=== PATIENT | male | born 1960 | race Caucasian/White ===

== ENCOUNTER 2019-04-26 18:03 | Inpatient (IN) | payer OTHER ==
[2019-04-26] MEDS ORDERED: NS 0.9% 1000 ML** 1,000 ML IV ONE ×2 (18:08→19:39)
[2019-04-26] MEDS ORDERED: LORazepam INJ* 2 MG/ML 1 ML VIAL ONE (18:11)
[2019-04-26] MEDS ORDERED: Lorazepam PYXIS KEY PRN (18:15)
[2019-04-26] MEDS ORDERED: LORazepam INJ* 2 MG/ML 1 ML VIAL IV PUSH ONE (18:15)
--- NOTE | 2019-04-26 18:15 | ED ---
Altered Mental Status - HPI Summary HPI Summary: The patient is 58 y/o M arriving via ambulance to [facility] with concern for AMS tonight. Per EMS, the ambulance call was made for seizure-like activity witnessed by the patients girlfriend. When EMS arrived, the patient was sitting on the cough but was flailing around and became combative with staff. He was incontinence of urine, which is usual for him. New recent diagnosis of Parkinsons disease. His girlfriend notes marijuana use but no EtOH. EMS administered 2mg Narcan without success. VSS in transport. Level 5 Caveat secondary to AMS. History obtained from EMS. - History Of Current Complaint Stated Complaint: AMS PER EMS Hx Obtained From: EMS Hx From Patient Unobtainable Due To: Altered Mental Status - Level 5 Caveat Onset/Duration: Still Present Severity Currently: Severe Character: Agitation, Responsiveness Aggravating Factor(s): Unknown Alleviating Factor(s): Unknown Associated Signs And Symptoms: Positive: Seizure - possible - Allergies/Home Medications Allergies/Adverse Reactions: Allergies Allergy/AdvReac Type Severity Reaction Status Date / Time Penicillins Allergy Mild Itching Verified 04/26/19 18:24 Home Medications: Home Medications Unobtainable 04/26/19 [History Confirmed 04/26/19] PMH/Surg Hx/FS Hx/Imm Hx Sensory History: Denies: Hx Legally Blind Opthamlomology History: Denies: Hx Legally Blind Neurological History: Reports: Other Neuro Impairments/Disorders - Parkinson's disease - Surgical History Surgical History: Unable to Obtain/Confirm - Level 5 Caveat secondary to AMS. - Family History Known Family History: Positive: Unknown - Level 5 Caveat secondary to AMS. - Social History Alcohol Use: None Hx Substance Use: Yes Substance Use Type: Reports: Marijuana Smoking Status (MU): Unknown if Ever Smoked - Level 5 Caveat secondary to AMS. Review of Systems Positive: incontinence Neurological/Mental Status: Other - AMS, possible seizure activity All Other Systems Reviewed And Are Negative: No - Comments Additional Review of Systems Comments: Level 5 Caveat secondary to AMS. Physical Exam - Summary Physical Exam Summary: Constitutional: Well-developed, Well-nourished, Alert. (-) Distressed Skin: Warm, Dry HENT: Normocephalic; Atraumatic Eyes: Conjunctiva normal Neck: Musculoskeletal ROM normal neck. (-) JVD, (-) Stridor, (-) Tracheal deviation Cardio: Rhythm regular, rate tachycardic, Heart sounds normal; Intact distal pulses; The pedal pulses are 2+ and symmetric. Radial pulses are 2+ and symmetric. (-) Murmur Pulmonary/Chest wall: Effort normal. (-) Respiratory distress, (-) Wheezes, (-) Rales Abd: Soft, (-) tenderness, (-) Distension, (-) Guarding, (-) Rebound Musculoskeletal: (-) Edema Lymph: (-) Cervical adenopathy Neuro: Alert, Patient is nonverbal, Moving all extremities, No total-clonic activity noted Psych: Mood and affect Normal GCS: 10 (see scale) Triage Information Reviewed: Yes Vital Signs Reviewed: Yes - [place] Coma Scale Best Eye Response: 4 - Spontaneous Best Motor Response: 5 - Purposeful Movement Best Verbal Response: 1 - None Coma Scale Total: 10 Procedures - Sedation Patient Received Moderate/Deep Sedation with Procedure: No Diagnostics - Laboratory Result Diagrams: 04/27/19 04:21 04/27/19 04:21 Lab Statement: Any lab studies that have been ordered have been reviewed, and results considered in the medical decision making process. - Radiology CXR Radiology Interpretation Completed By: ED Physician Summary of Radiographic Findings: No acute disease. This imaging scan was reviewed and interpreted by Dr. Martínez. Pending official read. - EKG 1910 Cardiac Rate: NL - 75 BPM EKG Rhythm: Sinus Rhythm Summary of EKG Findings: An EKG at 1910 reveals sinus rhythm at rate of 75 BPM. RBBB. T-wave inversion in V2-V3. This EKG was reviewed and interpreted by Dr. Martínez. Re-Evaluation - Re-Evaluation First Eval Re-Evaluation Time: 19:30 Comment: Patient chemically sedated with Ativan/Haldol/Benadryl and additional Versed. Physical restraints in place. Second Eval Re-Evaluation Time: 19:45 Comment: Will terminate further need for chemical restraints at this time, physical restraints need reassessment Altered Mental Statu Course/Dx - Course Course Of Treatment: M of unknown age arriving via ambulance for initial seizure -like activity but became combative with EMS. Noted hx of marijuana use. Recent diagnosis of Parkinsons disease. 58 y/o M arriving via ambulance for initial seizure-like activity but became combative with EMS. Noted hx of marijuana use. Recent diagnosis of Parkinsons disease. Physical exam reveals patient to be nonverbal, moving all extremities, no total-clonic activity noted, tachycardic rate, GCS: 10 (see sacle). Patient placed on lunchroom monitor. IV access obtained. Patient received fluids. Patient chemically sedated with total 4ml Versed, 4mg Ativan, 10mg Haldol and 50 mg Benadryl. Patient needs sedation for head CT. Physical restraints in place. Blood work thus far reveals WBCs of 22.3 , hct of 41, MCV of 96, MCH of 32, hypokalemia of 3, chloride of 100, carbon dioxide of 17, anion gap of 22, creatinine of 1.29, glucose of 209, lactic acid of 13.2, magnesium of 2.9, hyperammonemia of 117, and total creatinine kinase of 285. Patient administered potassium chloride. An EKG at 1911 reveals sinus rhythm at rate of 75 BPM, RBBB, T-wave inversion in V2-V3. CXR reveals no acute disease. Dr. Chance from the hospitalist services accepts the patient for admission, pending labs, Brain CT. - Diagnoses Provider Diagnoses: Encephalopathy, Hyperammonemia, Leukocytosis, Hypokalemia - Provider Notifications Discussed Care Of Patient With: Joseph Chance - hospitalist Time Discussed With Above Provider: 19:15 Instructed by Provider To: Other - I discussed the patients case with Dr. Chance, who accepts the patient for admission. - Critical Care Time Critical Care Time: 75-104 min - 90 minutes Discharge ED - Sign-Out/Discharge Documenting (check all that apply): Patient Departure - Patient accepted for admission by Dr. Chance. - Discharge Plan Condition: Critical Disposition: ADMITTED TO [facility] - Billing Disposition and Condition Condition: CRITICAL Disposition: Admitted to [facility] - Attestation Statements Document Initiated by Scribe: Yes Documenting Scribe: Danna Dickson Provider For Whom Danielibe is Documenting (Include Credential): Dr. Jace Martínez DO Scribe Attestation: Danna Nguyen scribed for Dr. Jace Martínez DO on 04/27/19 at 1026. Scribe Documentation Reviewed: Yes Provider Attestation: The documentation as recorded by the scribe, Danna Randolph accurately reflects the service I personally performed and the decisions made by me, Dr. Jace Martínez, DO Status of El Document: Viewed - Assessment for Patient Restraint Face to Face Encounter Date: 04/26/19 Face to Face Encounter Time: 19:32 Evaluation of the Patient's Immediate Situation: Patient agitated, AMS, unable to obtain head CT without sedation Patient's Reaction to Intervention: Patient still agitated after receiving Ativan/Haldol/Benadryl, patient calm after additional Versed. Patient's Medication and Behavioral Condition: Ativan/Haldol/Benadryl and additional Haldol Evaluate Need for Continued Restraint: Terminate - will terminate chemical restraints and physical restraints will need reassessment
[2019-04-26] MEDS ORDERED: Haloperidol INJ IV/IM* 5 MG/ML AMP IV SLOW PU ONE (18:16)
[2019-04-26] MEDS ORDERED: diPHENhydraMINE IV* 50 MG/ML 1 ml VIAL (BENADRYL) IV ONE (18:16)
--- OUTSIDE RECORDS SUMMARY | 2019-04-26 18:21 | XMS REPORT | Continuity of Care Document ---
:1960 External Reference #:[id number] Author Name Keny Cha NToño (transmitted by agent of provider Joanie Dudley) Address [address], [place] [address] Care Team Providers Name Role Phone Hugh Jacobo D.O. - Family Medicine Care Team Information Fire Control Officer [phone] Problems Description No Information Available Social History Type Date Description Comments Sex Unknown Tobacco Use Start: Unknown Light tobacco smoker (10 or fewer cigarettes/day) Smoking Status Reviewed: 04/05/19 Light tobacco smoker (10 or fewer cigarettes/day) ETOH Use Denies alcohol use Tobacco Use Start: Unknown Light tobacco smoker (10 or fewer cigarettes/day) Recreational Drug Use Current Drug User Exercise Type/Frequency Exercises regularly Allergies, Adverse Reactions, Alerts Active Allergies Reaction Severity Comments Date Penicillin 01/25/2019 Medications Active Medications SIG Qnty Indications Ordering Provider Date Rivastigmine Tartrate take one capsule 60caps G20 Keny Cha, 2019 by mouth twice a N.P. 1.5mg Capsules day start may 04 Carbidopa-Levodopa 1/2 pill three 45tabs G20 Keny Cha, 01/25/2019 times a day, 30 N.P. 25-100mg Tablets min prior to meals History Medications No Active Medications Unknown 01/25/2019 - 01/25/2019 Immunizations Description No Information Available Vital Signs Date Vital Result Comment 04/05/2019 3:42pm Height 70 inches 5'10" Weight 155.00 lb Heart Rate 68 /min BP Systolic 130 mmHg BP Diastolic 82 mmHg BMI (Body Mass Index) 22.2 kg/m2 01/25/2019 1:24pm Height 70 inches 5'10" Weight 150.00 lb Heart Rate 62 /min BP Systolic 132 mmHg BP Diastolic 82 mmHg BMI (Body Mass Index) 21.5 kg/m2 Results Test Acquired Date Facility Test Result H/L Range Note CBC Auto 01/25/2019 [facility] White Blood 14.3 10^3/uL High 3.5-10.[address] [place] [address] [phone] Red Blood Count 4.25 10^6/uL Normal 4.18-5.48 Hemoglobin 13.5 g/dL Low 14.0-18.0 Hematocrit 40 % Low 42-52 Mean Corpuscular Volume 94 fL Normal 80-94 Mean Corpuscular Hemoglobin 32 pg High 27-31 Mean Corpuscular HGB Conc 34 g/dL Normal 31-36 Red Cell Distribution Width 14 % Normal 10-15 Platelet Count 345 10^3/uL Normal 150-450 Mean Platelet Volume 7.4 fL Normal 7.4-10.4 Abs Neutrophils 10.7 10^3/uL High 1.5-7.7 Abs Lymphocytes 1.9 10^3/uL Normal 1.0-4.8 Abs Monocytes 1.0 10^3/uL High 0-0.8 Abs Eosinophils 0.5 10^3/uL Normal 0-0.6 Abs Basophils 0.1 10^3/uL Normal 0-0.2 Abs Nucleated RBC 0.0 10^3/uL Granulocyte % 74.8 % Lymphocyte % 13.3 % Monocyte % 7.2 % Eosinophil % 3.7 % Basophil % 1.0 % Nucleated Red Blood Cells % 0.0 Comp Metabolic 01/25/2019 [facility] Sodium 138 mmol/L Normal 135-[address] [place] [address] [phone] Potassium 4.7 mmol/L Normal 3.5-5.0 Chloride 101 mmol/L Normal 101-111 Co2 Carbon Dioxide 32 mmol/L Normal 22-32 Anion Gap 5 mmol/L Normal 2-11 Glucose 92 mg/dL Normal 70-100 Blood Urea Nitrogen 12 mg/dL Normal 6-24 Creatinine 0.86 mg/dL Normal 0.67-1.17 BUN/Creatinine Ratio 14.0 Normal 8-20 Calcium 9.2 mg/dL Normal 8.6-10.3 Total Protein 6.6 g/dL Normal 6.4-8.9 Albumin 4.1 g/dL Normal 3.2-5.2 Globulin 2.5 g/dL Normal 2-4 Albumin/Globulin Ratio 1.6 Normal 1-3 Total Bilirubin 0.60 mg/dL Normal 0.2-1.0 Alkaline Phosphatase 75 U/L Normal 34-104 Alt 8 U/L Normal 7-52 Ast 11 U/L Low 13-39 Egfr Non- 91.3 >60 Egfr 110.5 >60 1 Paraneoplastic 01/25/2019 [facility] Paraneoplastic Ab See Comment [address] [place] [address] [phone] Anti-Neuronal Nuclear Ab Type1 Negative titer <1:240 Reflex Added None. 3 Anti-Neuronal Nuclear Ab Type2 Negative titer <1:240 4 Anti-Neuronal Nuclear Ab Type3 Negative titer <1:240 5 Anti-Glial/Neuronal Nuc Ab-1 A Negative titer <1:240 6 Purkinje Cell Cytoplasm Type 1 Negative titer <1:240 7 Purkinje Cell Cytoplasm Type 2 Negative titer <1:240 8 Purkinje Cell Cytoplasm Typ Tr Negative titer <1:240 9 Amphiphysin Antibody Negative titer <1:240 10 CRMP-5 IgG Antibody Negative titer <1:240 11 Anti-Striated Muscle Antibody Negative titer <1:120 12 Calcium Channel Binding Ab P/Q 0.00 nmol/L <=0.02 13 N Type Calcium Channel Binding 0.00 nmol/L <=0.03 14 AChR Ganglionic Neuronal Ab 0.00 nmol/L <=0.02 15 Voltage-Gated Potassium Chann 0.00 nmol/L <=0.02 16 Vitamin B12 01/25/2019 [facility] Vitamin B12 220 pg/mL Normal 180-914 17 [address] [place] [address] [phone] Folic Acid (Folate) 6.60 ng/mL >3.99 18 Laboratory test 01/25/2019 [facility] Methylmalonic 0.15 <= 0.40 [address] Acid Mma nmol/[place] [address] [phone] TSH (Thyroid Stim Horm) 1.10 mcIU/mL Normal 0.34-5.60 20 Free T4 (Free Thyroxine) 0.79 ng/dL Normal 0.61-1.12 21 Erythrocyte Sed Rate 15 mm/Hr Normal 0-19 22 C Reactive Protein 6.23 mg/L Normal <8.01 23 Protein 01/25/2019 [facility] Total 6.8 g/dL 6.3 - Electrophoresis [address] Protein(Pep) 7.9 [place] [address] [phone] Albumin 3.5 g/dL 3.4-4.7 Alpha-1 Globulin 0.3 g/dL 0.1-0.3 Alpha-2 Globulin 1.2 g/dL Abnormal 0.6-1.0 Beta Globulin 0.8 g/dL 0.7-1.2 Gamma Globulin 1.0 g/dL 0.6-1.6 Albumin/Globulin Ratio 1.06 Impression See Comment 24 Immunofixation See Comment 25 1 Because ethnic data is not always readily available, this report includes an eGFR for both -Americans and non- Americans. The National Kidney Disease Education Program (NKDEP) does not endorse the use of the MDRD equation for patients that are not between the ages of 18 and 70, are , have extremes of body size, muscle mass, or nutritional status, or are non- or non-. According to the National Kidney Foundation, irrespective of diagnosis, the stage of the disease is based on the level of kidney function: Stage Description GFR(mL/min/1.73 m(2)) 1 Kidney damage with normal or decreased GFR 90 2 Kidney damage with mild decrease in GFR 60-89 3 Moderate decrease in GFR 30-59 4 Severe decrease in GFR 15-29 5 Kidney failure <15 (or dialysis) 2 No informative autoantibodies were detected in the Paraneoplastic Evaluation. However, a negative result does not exclude neurological autoimmunity with or without associated neoplasia. Sensitivity and specificity of antibody testing are enhanced by testing both serum and CSF. 3 ADDITIONAL INFORMATION This test was developed and its performance characteristics determined by [facility] in a manner consistent with CLIA requirements. This test has not been cleared or approved by the U.S. Food and Drug Administration. 4 ADDITIONAL INFORMATION This test was developed and its performance characteristics determined by [facility] in a manner consistent with CLIA requirements. This test has not been cleared or approved by the U.S. Food and Drug Administration. 5 ADDITIONAL INFORMATION This test was developed and its performance characteristics determined by [facility] in a manner consistent with CLIA requirements. This test has not been cleared or approved by the U.S. Food and Drug Administration. 6 ADDITIONAL INFORMATION This test was developed and its performance characteristics determined by [facility] in a manner consistent with CLIA requirements. This test has not been cleared or approved by the U.S. Food and Drug Administration. 7 ADDITIONAL INFORMATION This test was developed and its performance characteristics determined by [facility] in a manner consistent with CLIA requirements. This test has not been cleared or approved by the U.S. Food and Drug Administration. 8 ADDITIONAL INFORMATION This test was developed and its performance characteristics determined by [facility] in a manner consistent with CLIA requirements. This test has not been cleared or approved by the U.S. Food and Drug Administration. 9 ADDITIONAL INFORMATION This test was developed and its performance characteristics determined by [facility] in a manner consistent with CLIA requirements. This test has not been cleared or approved by the U.S. Food and Drug Administration. 10 ADDITIONAL INFORMATION This test was developed and its performance characteristics determined by [facility] in a manner consistent with CLIA requirements. This test has not been cleared or approved by the U.S. Food and Drug Administration. 11 ADDITIONAL INFORMATION This test was developed and its performance characteristics determined by [facility] in a manner consistent with CLIA requirements. This test has not been cleared or approved by the U.S. Food and Drug Administration. 12 ADDITIONAL INFORMATION This test was developed and its performance characteristics determined by [facility] in a manner consistent with CLIA requirements. This test has not been cleared or approved by the U.S. Food and Drug Administration. Test Performed by: [facility] - [address] [address] Coin Counter And Wrapper: Ryan Moncada M.D. Ph.D.; CLIA# [id number] 13 ADDITIONAL INFORMATION This test was developed and its performance characteristics determined by [facility] in a manner consistent with CLIA requirements. This test has not been cleared or approved by the U.S. Food and Drug Administration. 14 ADDITIONAL INFORMATION This test was developed and its performance characteristics determined by [facility] in a manner consistent with CLIA requirements. This test has not been cleared or approved by the U.S. Food and Drug Administration. 15 ADDITIONAL INFORMATION This test was developed and its performance characteristics determined by [facility] in a manner consistent with CLIA requirements. This test has not been cleared or approved by the U.S. Food and Drug Administration. 16 ADDITIONAL INFORMATION This test was developed and its performance characteristics determined by [facility] in a manner consistent with CLIA requirements. This test has not been cleared or approved by the U.S. Food and Drug Administration. 17 Normal Range 180 to 914 Indeterminate Range 145 to 180 Deficient Range <145 18 Copy Result to: HUGH JACOBO ([id number]) 19 ADDITIONAL INFORMATION This test was developed and its performance characteristics determined by [facility] in a manner consistent with CLIA requirements. This test has not been cleared or approved by the U.S. Food and Drug Administration. Test Performed by: [place] [address] [employer] Counter And Wrapper: Ryan Moncada M.D. Ph.D.; CLIA# [id number] 20 Copy Result to: HUGH JACOBO ([id number]) 21 Copy Result to: HUGH JACOBO ([id number]) 22 Copy Result to: HUGH JACOBO ([id number]) 23 Copy Result to: HUGH JACOBO ([id number]) 24 Small abnormality in gamma fraction. See Immunofixation. Test Performed by: [place] [address] [employer] Counter [employer] Wrapper: Ryan Moncada M.D. Ph.D.; CLIA# [id number] 25 Small monoclonal IgM kappa within the gamma fraction. Suggest repeat testing in 6-12 months if clinically indicated. Test Performed by: [place] [address] [employer] Counter [employer] Wrapper: Ryan Moncada M.D. Ph.D.; CLIA# [id number] Procedures Description No Information Available Medical Devices Description No Information Available Encounters Type Date Location Provider Dx Diagnosis Office Visit 01/25/2019 [facility] Keny Cha, R41.3 Other amnesia 1:[facility] N[facility] R53.83 Other fatigue G20 Parkinson's disease Assessments Date Code Description Provider 04/05/2019 R41.3 Other amnesia Keny Cha N.P. 04/05/2019 R53.83 Other fatigue Keny Cha, N.P. 04/05/2019 G20 Parkinson's disease Keny Cha, N.P. 01/25/2019 R41.3 Other amnesia Keny Cha, N.P. 01/25/2019 R53.83 Other fatigue Keny Semaj, N.P. 01/25/2019 G20 Parkinson's disease Keny Cha, N.P. Plan of Treatment 04/05/2019 - Keny Cha, N.P.R41.3 Other amnesiaReferral:Jace Gupta, PHD, Clinical NeuropsychologstFollow up:[address] Qiu over bookRecommendations:Please take B12 [id number] Other [id number] Parkinson's diseaseNew Medication:Rivastigmine Tartrate 1.5 mg - take one capsule by mouth twice a day start may 04Referral:[facility], Clinic/Center Functional Status Description No Information Available Mental Status Description No Information Available Referrals Refer to Reason for Referral Status Appt Date [facility] Created [address] [place], [place] [id number] [phone] Jace Gupta, PHD Created [address] [place] [address] [phone] [facility] g20, parkinsonism Closed [address] [place] [address] [phone]
[2019-04-26] MEDS ORDERED: diPHENhydraMINE IV* 50 MG/ML 1 ml VIAL (BENADRYL) ONE (18:22)
[2019-04-26] MEDS ORDERED: Haloperidol INJ IV/IM* 5 MG/ML AMP ONE (18:22)
[2019-04-26] MEDS ORDERED: Midazolam* 1 MG/ML 2 ML VIAL (2 MG) IV SLOW PU ONE ×7 (18:24→20:05)
[2019-04-26] MEDS ORDERED: Succinylcholine* 20 MG/ML 10 ML VIAL ONE ×2 (18:39→21:31)
[2019-04-26] MEDS ORDERED: Midazolam* 1 MG/ML 2 ML VIAL (2 MG) ONE (18:39)
[2019-04-26] MEDS ORDERED: Midazolam* 1 MG/ML 10 ML VIAL (10 MG) ONE (18:39)
[2019-04-26] MEDS ORDERED: Etomidate* 2 MG/ML 20 ML VIAL (40 MG) ONE (18:39)
[2019-04-26 19:03] LABS: Hematocrit 41 % (42-52); Mean Corpuscular HGB Conc 34 g/dL (31-36); Mean Corpuscular Hemoglobin 32 pg (27-31); Mean Corpuscular Volume 96 fL (80-94); Mean Platelet Volume 7.3 fL (7.4-10.4); Platelet Count 304 10^3/uL (150-450); Red Blood Count 4.32 10^6 /uL (4.18-5.48); Red Cell Distribution Width 14 % (10-15); White Blood Count 22.3 10^3/uL (3.5-10.8)
[2019-04-26 19:09] LABS: INR 0.96 (0.82-1.09)
[2019-04-26 19:22] LABS: ALT 14 U/L (7-52); AST 18 U/L (13-39); Albumin 4.7 g/dL (3.2-5.2); Albumin/Globulin Ratio 1.8 (1-3); Alkaline Phosphatase 68 U/L (34-104); Anion Gap 22 mmol/L (2-11); BUN/Creatinine Ratio 10.9 (8-20); Blood Urea Nitrogen 14 mg/dL (6-24); CO2 Carbon Dioxide 17 mmol/L (22-32); Calcium 9.5 mg/dL (8.6-10.3); Chloride 100 mmol/L (101-111); Creatine Kinase 285 U/L (10-223); EGFR African American 69.2 (>60); EGFR Non-African American 57.2 (>60); Globulin 2.6 g/dL (2-4); Glucose 209 mg/dL (70-100); Magnesium 2.9 mg/dL (1.9-2.7); Sodium 139 mmol/L (135-145); Total Protein 7.3 g/dL (6.4-8.9); Troponin I 0.01 ng/mL (<0.03)
[2019-04-26] MEDS ORDERED: Lidocaine 1% INJ* 10 MG/ML 30 ML SDV INJ ONE (19:28)
[2019-04-26] MEDS ORDERED: KCL 10 MEQ/50 ML IVPREMIX* 10 MEQ/50 ML BAG IV ONE (19:31)
[2019-04-26] MEDS ORDERED: Lidocaine 2.5%/Prilocain 2.5%* 5 GM TUBE ONE (19:41)
[2019-04-26 20:02] LABS: Influenza A Molecular Negative (Negative); Influenza B Molecular Negative (Negative)
[2019-04-26 20:10] LABS: Alcohol < 10 mg/dL (<10)
[2019-04-26 20:18] LABS: ABS Basophils 0.2 10^3/ul (0-0.2); ABS Eosinophils 0.1 10^3/ul (0-0.6); ABS Lymphocytes 0.9 10^3/ul (1.0-4.8); ABS Monocytes 0.8 10^3/ul (0-0.8); ABS Neutrophils 20.3 10^3/ul (1.5-7.7); Eosinophil % 0.3 %; Lymphocyte % 4.2 %
[2019-04-26 20:18] LABS: Urine Appearance Cloudy; Urine Bilirubin Negative (Negative); Urine Blood Negative (Negative); Urine Color Yellow; Urine Glucose Negative (Negative); Urine Ketones Negative (Negative); Urine Nitrite Negative (Negative); Urine Protein 2+(100 mg/dL) (Negative); Urine Specific Gravity 1.012 (1.010-1.030); Urine Urobilinogen Negative (Negative)
[2019-04-26 20:20] LABS: Urine Bacteria Absent (Absent); Urine Red Blood Cell 1+(3-5/hpf) (Absent); Urine White Blood Cell Trace(0-5/hpf) (Absent)
[2019-04-26 20:25] LABS: TSH (Thyroid Stimulating Horm) 4.18 mcIU/mL (0.34-5.60)
[2019-04-26 20:32] LABS: Urine Benzodiazepine Screen Presumptive Positive (None Detect); Urine Opiates Screen None Detected (None Detect)
--- NOTE | 2019-04-26 20:46 | CONSULT ---
Consult Consult: Lumbar puncture was done at L4-L5 region; 2mg Versed administered, two attempts were made, clear CSF obtained. <Donavan Harden - Last Filed: 04/26/19 20:43> Consult: NDICATION: AMS/elevated WBC PROCEDURE INDUSTRIAL STAFF NURSE: Gama Yoder MD CONSENT: Informed consent from family was obtained and is in the chart PROCEDURE SUMMARY: A time-out was performed. The patient was placed in the left lateral decubitus position with help from the nursing staff. The area was cleansed and draped in usual sterile fashion. Anesthesia was achieved with local lidocaine 1%. A 22- gauge spinal needle was placed in the L4-5 interspace. On the 2nd attempt, clear cerebral spinal fluid was obtained. Four tubes were filled with 4 mL of CSF. These were sent for the usual tests. The patient had no immediate complications and tolerated the procedure well. ESTIMATED BLOOD LOSS: Minimal <Gama Yoder - Last Filed: 04/26/19 21:55> ED Procedures - Lumbar Puncture L4-L5 Procedural Sedation: Versed 2mg Position: Lateral Decubitus Spinal Needle Used: 22 Gauge Lumbar Puncture Note: Lumbar puncture was done at L4-L5 region; 2mg Versed administered, two attempts were made, clear CSF obtained. <Donavan Harden - Last Filed: 04/26/19 20:43>
[2019-04-26 21:01] LABS: Body Fluid Source Cerebral Spinal
[2019-04-26 21:18] LABS: CSF Glucose 94 mg/dL (40-70)
[2019-04-26] MEDS ORDERED: Propofol* 100 ML ONE (21:30)
--- NOTE | 2019-04-26 21:49 | ED ---
ED Procedures - Intubation Time of Intubation: 21:48 Intubation Method: orotracheal Tube Size (cm): 7.5 Medications: Succinylcholine Breath Sounds after Intubation: equal Intubation Complications: no complications Post Intubation Xray: Yes Progress/Xray Impression: Tube placed succesfully
[2019-04-26 21:53] LABS: Body Fluid Mono 33 %
[2019-04-26] MEDS ORDERED: cefTRIAXone(*) 2 GM in NS 0.9% 100 ML* 100 ML IVPB SCH (22:00)
[2019-04-26] MEDS ORDERED: Propofol* 100 ML IV SCH (23:00)
[2019-04-26] MEDS: NS 0.9% 1000 ML** 1,000 ML IV SCH (23:23)
[2019-04-26] MEDS ORDERED: fentaNYL INFUSION 50 MCG/ML* 2,500 MCG/50 ML BAG IV SCH (23:45)
--- NOTE | 2019-04-26 23:59 | HP ---
History of Present Illness - History of Present Illness Reason for Visit: Altered mental status, Lethargy, Seizure like activities History of Present Illness: 58 yo male with PMHx significant for newly diagnosed Parkinson's disease per girl friend presented with CC of AMS, Seizure like activity this PM per family. Girl friend said she witnessed patient shaking and gazing without responding to her. This lasted for about 3-5 minutes. There was associated urinary incontinence. There was a remote history of headache and continued use of nicotine. Denied fever, nausea, vomiting. Patient was newly diagnosed with Parkinson's and is following Dr. Qiu (Neurology). In the ED patient was noted to be combative, lethargic and was sedated. Initial labs revealed Leukocytosis, Hyperammonemia and lactic acidosis. Case discussed discussed with Wheel Setter Dr. Degroot who agreed patient be admitted to ICU, intubated (propofol) and empiric treatment for meningitis started. 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 Psych: Addictions - Nicotine addiction - Past Surgical History Past Surgical History: None - Unable to obtain due to patient non verbal and sedated - Past Family History Family History: None - Unable to obtain; Patient sedated and non verbal - Past Social History Smoke: 1 pack per day Lives: Roommate Review of Systems - Measurements Intake and Output: Intake and Output Last 24 Hours 04/24/19 04/25/19 04/26/19 04/27/19 06:59 06:59 06:59 06:59 Intake Total 50 Balance 50 Weight 77.111 kg Intake: IV Fluids 50 - Review of Systems General Comments: Unable to obtain due to patient's condition (Sedated and nonverbal) Objective Active Medications: Chlorhexidine Gluconate (Peridex Mouth Wash 0.12%*) 15 ml SWISH SPIT Q4HR [facility] Enoxaparin Sodium (Lovenox(*)) 40 mg SUBCUT Q24H [facility] Sodium Chloride (Ns 0.9% 1000 Ml) 1,000 mls @ 125 mls/hr IV PER RATE [facility] Last Admin: 04/26/19 23:23 Dose: 125 mls/hr Ceftriaxone Sodium 2 gm/ (Sodium Chloride) 100 mls @ 200 mls/hr IVPB Q12H [facility] Last Admin: 04/26/19 23:23 Dose: 200 mls/hr Fentanyl Citrate (Fentanyl Infusion Bag 50 Mcg/Ml 50 Ml) 2,500 mcg in 50 mls @ 0.25 mls/hr IV .PER PROTOCOL [facility]; Protocol Last Admin: 04/26/19 23:51 Dose: 0.25 mls/hr Propofol (Diprivan*) 100 mls @ 27.76 mls/hr IV .PER PROTOCOL [facility]; Protocol Potassium Chloride (Potassium Chloride 20 Meq/100 Ml Ivpremix*) 20 meq in 100 mls @ 50 mls/hr IV Q2H [facility] Stop: 04/27/19 03:44 Miscellaneous (Ativan Pyxis Bray) 1 ea N/A .ATIVAN IV BRAY PRN PRN Reason: PYXIS BRAY Nicotine (Nicotine Patch 14 Mg/24 Hr*) 1 patch TRANSDERM DAILY [facility] Pantoprazole Sodium (Protonix Iv*) 40 mg IV DAILY [facility] Pharmacy Profile Note (Nicotine Patch Removal Note*) 1 note FOLLOW UP 0600 [facility] Vital Signs - 8 hr 04/26/19 04/26/19 04/26/19 18:14 18:27 18:28 Temperature 97.2 F Pulse Rate 123 131 Respiratory 39 30 17 Rate Blood Pressure 157/135 (mmHg) O2 Sat by Pulse 95 95 Oximetry 04/26/19 04/26/19 04/26/19 18:33 18:41 18:52 Temperature Pulse Rate 121 122 103 Respiratory 22 33 Rate Blood Pressure 157/100 149/104 158/80 (mmHg) O2 Sat by Pulse 95 95 97 Oximetry 04/26/19 04/26/19 04/26/19 19:13 19:32 19:43 Temperature 98.8 F Pulse Rate 76 71 77 Respiratory 22 Rate Blood Pressure 122/64 127/88 124/67 (mmHg) O2 Sat by Pulse 97 96 94 Oximetry 04/26/19 04/26/19 04/26/19 20:01 20:13 20:15 Temperature 97.5 F 97.7 F Pulse Rate 71 69 75 Respiratory Rate Blood Pressure 130/67 130/67 (mmHg) O2 Sat by Pulse 92 91 90 Oximetry 04/26/19 04/26/19 04/26/19 20:43 21:01 21:13 Temperature 98.6 F 98.8 F 99.0 F Pulse Rate 77 71 77 Respiratory Rate Blood Pressure 113/58 122/58 (mmHg) O2 Sat by Pulse 100 95 97 Oximetry 04/26/19 04/26/19 04/26/19 21:43 22:00 22:44 Temperature 99.3 F 99.5 F 98.6 F Pulse Rate 85 85 Respiratory Rate Blood Pressure 131/75 148/79 (mmHg) O2 Sat by Pulse 97 98 Oximetry 04/26/19 04/26/19 04/26/19 22:45 23:00 23:02 Temperature 99.0 F 99.5 F 99.5 F Pulse Rate 70 74 67 Respiratory Rate Blood Pressure 125/80 135/81 (mmHg) O2 Sat by Pulse 100 100 100 Oximetry 04/26/19 04/26/19 04/26/19 23:15 23:30 23:51 Temperature 99.5 F 99.5 F Pulse Rate 80 75 Respiratory 28 Rate Blood Pressure 157/77 126/91 (mmHg) O2 Sat by Pulse 100 100 Oximetry Oxygen Devices in Use Now: Mechanical Ventilator Eyes: No Scleral Icterus Ears/Nose/Mouth/Throat: - - Dry mucous membrane Neck: NL Appearance and Movements; NL JVP, Trachea Midline, No Thyroid Enlargement, Masses Respiratory: Clear to Auscultation Cardiovascular: NL Sounds; No Murmurs; No JVD, RRR, No Edema Abdominal: NL Sounds; No Tenderness; No Distention, No Hepatosplenomegaly Extremities: No Edema, No Clubbing, Cyanosis Skin: No Rash or Ulcers Neurological: - - Lethargic, sedated, nonverbal Result Diagrams: 04/26/19 18:50 04/26/19 18:50 Microbiology and Other Data: Microbiology 04/26/19 20:25 CSF Gram Stain (Tube 3) - Preliminary Cerebral Spinal Fluid 04/26/19 19:15 Nasal Screen MRSA (PCR) - Final Nasal Mrsa Not Detected Diagnostic Imaging: CT brain--No acute intra-cranial pathology; CXR-wnl EKG Data: NSR Assess/Plan/Problems-Billing Assessment: 58 yo male with PMHx significant for newly diagnosed Parkinson's disease per girl friend presented with: - Patient Problems (1) Sepsis Current Visit: Yes Status: Acute Comment: Met sepsis critieria on admission- Tachycardia, Leucocytosis, hypotension. Sepsis could be due to Meningitis. LP done and awaiting culture and sensitivity. Meningitis could be asceptic in nature. I will start patient on empiric treatment with IV ceftriaxone 2 g Q12H. (2) Seizure Current Visit: Yes Status: Acute Code(s): R56.9 - UNSPECIFIED CONVULSIONS SNOMED Code(s): 91920805 Comment: Patient will be started on IV Keppra 1000 mg loading dose stat and 500 mg Q12H. EEG and Neurology evaluation. (3) Encephalopathy acute Current Visit: Yes Status: Acute Code(s): G93.40 - ENCEPHALOPATHY, UNSPECIFIED SNOMED Code(s): 79655769 Comment: Probably due to Hyperammonemia and suspected meningitis. Will start patient on lactulose. FU labs (4) Hypokalemia Current Visit: Yes Status: Acute Code(s): E87.6 - HYPOKALEMIA SNOMED Code( s): 18422432 Comment: IV potasium chloride 10 meQ given in the ED. IVPB KCl 20meQ X 2 doses FU AL lab (5) Nicotine dependence Current Visit: Yes Status: Acute Code(s): F17.200 - NICOTINE DEPENDENCE, UNSPECIFIED, UNCOMPLICATED SNOMED Code(s): 11986519 Comment: Nicotine patch (6) Parkinsons disease Current Visit: Yes Status: Acute Code(s): G20 - PARKINSON'S DISEASE SNOMED Code(s): 35887386 Comment: c/w home meds (7) Full code status Current Visit: Yes Status: Acute Code(s): Z78.9 - OTHER SPECIFIED HEALTH STATUS SNOMED Code(s): 596305157 (8) DVT prophylaxis Current Visit: Yes Status: Acute Code(s): Z29.9 - ENCOUNTER FOR PROPHYLACTIC MEASURES, UNSPECIFIED SNOMED Code(s): 473322159 Comment: Lovenox Status and Disposition: Critical Admit inpatient ICU. Counseling and/or Coordination of Care Minutes: 60 minutes
[2019-04-27] MEDS: KCL 20 MEQ/100 ML IVPREMIX* 20 MEQ/100 ML BAG IV SCH ×2 (00:05→02:10)
[2019-04-27] MEDS ORDERED: levETIRAcetam 1000MG IVPREMIX* 1,000 MG/100 ML BAG IVPB ONE (00:07)
[2019-04-27] MEDS: Enoxaparin(*) 40 MG/0.4 ML SYR SUBCUT SCH ×2 (00:09→21:04)
[2019-04-27] MEDS: Chlorhexidine MOUTHWASH 0.12%* 15 ML UDC SWISH SPIT SCH ×7 (00:09→23:42)
[2019-04-27] MEDS: levETIRAcetam 500 MG IVPREMIX* 500 MG/100 ML BAG IV SCH ×2 (00:54→13:10)
[2019-04-27] MEDS: Propofol* 100 ML IV SCH ×4 (01:37→22:18)
[2019-04-27 04:45] LABS: ABS Basophils 0.1 10^3/ul (0-0.2); ABS Eosinophils 0.2 10^3/ul (0-0.6); ABS Lymphocytes 2.4 10^3/ul (1.0-4.8); ABS Monocytes 1.2 10^3/ul (0-0.8); ABS Neutrophils 11.9 10^3/ul (1.5-7.7); Eosinophil % 1.5 %; Hematocrit 35 % (42-52); Hemoglobin 11.9 g/dL (14.0-18.0); Lymphocyte % 15.2 %; Mean Corpuscular HGB Conc 34 g/dL (31-36); Mean Corpuscular Hemoglobin 32 pg (27-31); Mean Corpuscular Volume 94 fL (80-94); Mean Platelet Volume 7.2 fL (7.4-10.4); Platelet Count 241 10^3/uL (150-450); Red Blood Count 3.69 10^6 /uL (4.18-5.48); Red Cell Distribution Width 14 % (10-15); White Blood Count 15.8 10^3/uL (3.5-10.8)
[2019-04-27 05:00] LABS: BUN/Creatinine Ratio 11.4 (8-20); Calcium 8.6 mg/dL (8.6-10.3); EGFR African American 79.8 (>60); Potassium 3.9 mmol/L (3.5-5.0)
[2019-04-27] MEDS ORDERED: Nicotine Patch Removal NOTE FOLLOW UP SCH (06:00)
[2019-04-27] MEDS: NS 0.9% 1000 ML** 1,000 ML IV SCH ×3 (07:18→23:45)
[2019-04-27] MEDS ORDERED: Pantoprazole IV* 40 MG IV SCH (09:00)
[2019-04-27] MEDS ORDERED: Nicotine PATCH 14 MG/24 HR* PATCH TRANSDERM SCH (09:00)
[2019-04-27] MEDS: Famotidine SUSP ORALSYR 8 MG/ML G TUBE SCH (11:47)
--- NOTE | 2019-04-27 15:07 | PN ---
Date of Service: 04/27/19 Critical Care Services: Continues on ventilator - appears agitated when propofol held. No overt seizures since admission. EEG pending. Vital Signs: Temp Pulse Resp BP SpO2 FiO2 98.2 F 57 14 132/84 100 21 Physical Exam: Gen:Sedated with propofol HEENT:Pupils midposition and reactive Lungs:Clear Cardiac: Reg rhythm Abdomen:Not distended Extremities:No cyanosis or edema Neuro:No obvious focal deficits Fluid Balance (Past 24 Hours): 04/27/19 06:59 Intake Total 1239 Output Total 625 Balance 614 Weight 152 lb 1 oz Intake: IV Fluids 681 NS (0.9%) 631 IVPB 420 K 213 keppra 207 Medicated IV 138 CC - Propofol/Diprivan 138 Output: Christianson 625 Labs: Laboratory Results - last 24 hr 04/26/19 04/26/19 04/26/19 18:18 18:50 18:50 WBC 22.3 H RBC 4.32 Hgb 14.0 Hct 41 L MCV 96 H MCH 32 H MCHC 34 RDW 14 Plt Count 304 MPV 7.3 L Neut % (Auto) 91.2 Lymph % (Auto) 4.2 [place] % (Auto) 3.6 Eos % (Auto) 0.3 Baso % (Auto) 0.7 Absolute Neuts (auto) 20.3 H Absolute Lymphs (auto) 0.9 L Absolute Monos (auto) 0.8 Absolute Eos (auto) 0.1 Absolute Basos (auto) 0.2 Absolute Nucleated RBC 0.0 Nucleated RBC % 0.0 INR (Anticoag Therapy) 0.96 Sodium Potassium Chloride Carbon Dioxide Anion Gap BUN Creatinine Est GFR ( Amer) Est GFR (Non-Af Amer) BUN/Creatinine Ratio Glucose POC Glucose (mg/dL) 203 H Lactic Acid Calcium Magnesium Total Bilirubin AST ALT Alkaline Phosphatase Ammonia Total Creatine Kinase Troponin I Total Protein Albumin Globulin Albumin/Globulin Ratio TSH Urine Color Urine Appearance Urine pH Ur Specific [place] Urine Protein Urine Ketones Urine Blood Urine Nitrate Urine Bilirubin Urine Urobilinogen Ur Leukocyte Esterase Urine WBC (Auto) Urine RBC (Auto) Urine Bacteria Hyaline Casts Urine Sperm Urine Glucose Urine Ascorbic Acid Fluid Source Fluid Volume Fluid Color Fluid Appearance Fluid WBC Fluid RBC Fluid Tot Cell Count Fluid Neutrophils Fluid Lymphocytes Fluid Monocytes CSF Cell Count Tube # CSF Glucose CSF Total Protein Urine Opiates Screen Ur Barbiturates Screen Ur Phencyclidine Scrn Ur Amphetamines Screen U Benzodiazepines Scrn Urine Cocaine Screen U Cannabinoids Screen Serum Alcohol Influenza A (Rapid) Influenza B (Rapid) 04/26/19 04/26/19 04/26/19 18:50 18:50 18:50 WBC RBC Hgb Hct MCV MCH MCHC RDW Plt Count MPV Neut % (Auto) Lymph % (Auto) [place] % (Auto) Eos % (Auto) Baso % (Auto) Absolute Neuts (auto) Absolute Lymphs (auto) Absolute Monos (auto) Absolute Eos (auto) Absolute Basos (auto) Absolute Nucleated RBC Nucleated RBC % INR (Anticoag Therapy) Sodium 139 Potassium 3.0 L Chloride 100 L Carbon Dioxide 17 L Anion Gap 22 H BUN 14 Creatinine 1.29 H Est GFR ( Amer) 69.2 Est GFR (Non-Af Amer) 57.2 BUN/Creatinine Ratio 10.9 Glucose 209 H POC Glucose (mg/dL) Lactic Acid 13.7 H* Calcium 9.5 Magnesium 2.9 H Total Bilirubin 1.00 AST 18 ALT 14 Alkaline Phosphatase 68 Ammonia 117 H Total Creatine Kinase 285 H Troponin I 0.01 Total Protein 7.3 Albumin 4.7 Globulin 2.6 Albumin/Globulin Ratio 1.8 TSH 4.18 Urine Color Urine Appearance Urine pH Ur Specific [place] Urine Protein Urine Ketones Urine Blood Urine Nitrate Urine Bilirubin Urine Urobilinogen Ur Leukocyte Esterase Urine WBC (Auto) Urine RBC (Auto) Urine Bacteria Hyaline Casts Urine Sperm Urine Glucose Urine Ascorbic Acid Fluid Source Fluid Volume Fluid Color Fluid Appearance Fluid WBC Fluid RBC Fluid Tot Cell Count Fluid Neutrophils Fluid Lymphocytes Fluid Monocytes CSF Cell Count Tube # CSF Glucose CSF Total Protein Urine Opiates Screen Ur Barbiturates Screen Ur Phencyclidine Scrn Ur Amphetamines Screen U Benzodiazepines Scrn Urine Cocaine Screen U Cannabinoids Screen Serum Alcohol < 10 Influenza A (Rapid) Influenza B (Rapid) 04/26/19 04/26/19 04/26/19 19:15 20:07 20:07 WBC RBC Hgb Hct MCV MCH MCHC RDW Plt Count MPV Neut % (Auto) Lymph % (Auto) [place] % (Auto) Eos % (Auto) Baso % (Auto) Absolute Neuts (auto) Absolute Lymphs (auto) Absolute Monos (auto) Absolute Eos (auto) Absolute Basos (auto) Absolute Nucleated RBC Nucleated RBC % INR (Anticoag Therapy) Sodium Potassium Chloride Carbon Dioxide Anion Gap BUN Creatinine Est GFR ( Amer) Est GFR (Non-Af Amer) BUN/Creatinine Ratio Glucose POC Glucose (mg/dL) Lactic Acid Calcium Magnesium Total Bilirubin AST ALT Alkaline Phosphatase Ammonia Total Creatine Kinase Troponin I Total Protein Albumin Globulin Albumin/Globulin Ratio TSH Urine Color Yellow Urine Appearance Cloudy Urine pH 5.0 Ur Specific [place] 1.012 Urine Protein 2+(100 mg/dl) A Urine Ketones Negative Urine Blood Negative Urine Nitrate Negative Urine Bilirubin Negative Urine Urobilinogen Negative Ur Leukocyte Esterase Negative Urine WBC (Auto) Trace(0-5/hpf) Urine RBC (Auto) 1+(3-5/hpf) A Urine Bacteria Absent Hyaline Casts Present A Urine Sperm Present A Urine Glucose Negative Urine Ascorbic Acid * A Fluid Source Fluid Volume Fluid Color Fluid Appearance Fluid WBC Fluid RBC Fluid Tot Cell Count Fluid Neutrophils Fluid Lymphocytes Fluid Monocytes CSF Cell Count Tube # CSF Glucose CSF Total Protein Urine Opiates Screen None detected Ur Barbiturates Screen None detected Ur Phencyclidine Scrn None detected Ur Amphetamines Screen None detected U Benzodiazepines Scrn Presumptive positive A Urine Cocaine Screen None detected U Cannabinoids Screen Presumptive positive A Serum Alcohol Influenza A (Rapid) Negative Influenza B (Rapid) Negative 04/26/19 04/26/19 04/26/19 20:25 20:25 23:25 WBC RBC Hgb Hct MCV MCH MCHC RDW Plt Count MPV Neut % (Auto) Lymph % (Auto) [place] % (Auto) Eos % (Auto) Baso % (Auto) Absolute Neuts (auto) Absolute Lymphs (auto) Absolute Monos (auto) Absolute Eos (auto) Absolute Basos (auto) Absolute Nucleated RBC Nucleated RBC % INR (Anticoag Therapy) Sodium Potassium Chloride Carbon Dioxide Anion Gap BUN Creatinine Est GFR ( Amer) Est GFR (Non-Af Amer) BUN/Creatinine Ratio Glucose POC Glucose (mg/dL) Lactic Acid 0.7 Calcium Magnesium Total Bilirubin AST ALT Alkaline Phosphatase Ammonia Total Creatine Kinase Troponin I Total Protein Albumin Globulin Albumin/Globulin Ratio TSH Urine Color Urine Appearance Urine pH Ur Specific [place] Urine Protein Urine Ketones Urine Blood Urine Nitrate Urine Bilirubin Urine Urobilinogen Ur Leukocyte Esterase Urine WBC (Auto) Urine RBC (Auto) Urine Bacteria Hyaline Casts Urine Sperm Urine Glucose Urine Ascorbic Acid Fluid Source Cerebral spinal Fluid Volume 2 Fluid Color Colorless Fluid Appearance Clear Fluid WBC 2 Fluid RBC 12 Fluid Tot Cell Count 3 Fluid Neutrophils Not Reportable Fluid Lymphocytes 67 Fluid Monocytes 33 CSF Cell Count Tube # 4 CSF Glucose 94 H CSF Total Protein 49 H Urine Opiates Screen Ur Barbiturates Screen Ur Phencyclidine Scrn Ur Amphetamines Screen U Benzodiazepines Scrn Urine Cocaine Screen U Cannabinoids Screen Serum Alcohol Influenza A (Rapid) Influenza B (Rapid) 04/27/19 04/27/19 04/27/19 04:21 04:21 04:21 WBC 15.8 H RBC 3.69 L Hgb 11.9 L Hct 35 L MCV 94 MCH 32 H MCHC 34 RDW 14 Plt Count 241 MPV 7.2 L Neut % (Auto) 75.4 Lymph % (Auto) 15.2 [place] % (Auto) 7.5 Eos % (Auto) 1.5 Baso % (Auto) 0.4 Absolute Neuts (auto) 11.9 H Absolute Lymphs (auto) 2.4 Absolute Monos (auto) 1.2 H Absolute Eos (auto) 0.2 Absolute Basos (auto) 0.1 Absolute Nucleated RBC 0.0 Nucleated RBC % 0.0 INR (Anticoag Therapy) Sodium 139 Potassium 3.9 Chloride 108 Carbon Dioxide 24 Anion Gap 7 BUN 13 Creatinine 1.14 Est GFR ( Amer) 79.8 Est GFR (Non-Af Amer) 66.0 BUN/Creatinine Ratio 11.4 Glucose 92 POC Glucose (mg/dL) Lactic Acid 0.6 Calcium 8.6 Magnesium Total Bilirubin AST ALT Alkaline Phosphatase Ammonia Total Creatine Kinase Troponin I Total Protein Albumin Globulin Albumin/Globulin Ratio TSH Urine Color Urine Appearance Urine pH Ur Specific [place] Urine Protein Urine Ketones Urine Blood Urine Nitrate Urine Bilirubin Urine Urobilinogen Ur Leukocyte Esterase Urine WBC (Auto) Urine RBC (Auto) Urine Bacteria Hyaline Casts Urine Sperm Urine Glucose Urine Ascorbic Acid Fluid Source Fluid Volume Fluid Color Fluid Appearance Fluid WBC Fluid RBC Fluid Tot Cell Count Fluid Neutrophils Fluid Lymphocytes Fluid Monocytes CSF Cell Count Tube # CSF Glucose CSF Total Protein Urine Opiates Screen Ur Barbiturates Screen Ur Phencyclidine Scrn Ur Amphetamines Screen U Benzodiazepines Scrn Urine Cocaine Screen U Cannabinoids Screen Serum Alcohol Influenza A (Rapid) Influenza B (Rapid) Studies: LP showing 67 lymphocytes and 33 monocytes Nutrition: None today Impression: 1. No apparent etiology for seizure - could antiparkinson drugs be responsible? 2. ? interpretation of the lymphocytes and monocytes in the LP. 3. Continued agitation may be from postictal state. Plan: 1. EEG and neuro consult pending. 2. Will d/c propofol periodocally and evaluate mental status 3. Sister to bring in antiparkinson drugs Critical Care Time: 45 minutes
[2019-04-27] MEDS ORDERED: Acetaminophen TAB* 325 MG PO PRN (15:37)
[2019-04-27] MEDS: Cefepime 1 GM in Dextrose(*) 1 GM/50 ML BAG IV SCH ×2 (16:11→23:45)
[2019-04-27] MEDS: Acetaminophen ADULT LIQ* 650 MG/20.3 ML UDC PO PRN ×2 (16:11→21:47)
--- NOTE | 2019-04-27 19:15 | CONS ---
CC: Dr. Jace Qiu * CONSULTATION REPORT: DATE OF CONSULT: 04/27/19 PATIENT OF: Dr. Degroot. HISTORY OF PRESENT ILLNESS: This 58-year-old man I am asked to evaluate for new onset of seizure disorder, which was witnessed yesterday by the girlfriend at about 5:30 last night and lasted for about 5 minutes with associated urinary incontinence. He recently has been evaluated by Dr. Qiu and Benjamin Cha and was thought to have Parkinsonian features with significant memory loss and was being referred to [facility] [place], but in the interim, Sinemet 25/100 half a pill 3 times a day with carbidopa and the rivastigmine 1.5 twice a day, those were his only medications. The rest of the workup included SPECT scan that was inconclusive, but detectable Parkinson's and he had an MRI scan in October 2018 which showed rare small vessel white matter disease. 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 He was otherwise in good health other than the neurological symptoms that Dr. Qiu and Benjamin Cha were addressing. He did smoke 10 or fewer cigarettes a day and of note, he has some depression, irritability and persistent coughing. Of note, he smokes since he was a teenager. His father of Alzheimer's at 86 and mother at 90 and had a half brother who had a stroke. ALLERGIES: Of note, he is allergic to PENICILLIN according to Dr. White's note. REVIEW OF SYSTEMS: Unobtainable from the patient. The girlfriend notes that he has had no acute medical illnesses and was fine the day before the day of the seizure. PHYSICAL EXAM: Temperature 102.6, pulse 72, respirations 18, blood pressure 139 /75. He is comatose on a propofol drip. Early today when the propofol was stopped, he became agitated and moved all extremities with power. I was unable to perform neurological exam except on a comatose patient. He was not responsive to noxious stim. Pupils were small and reactive. Chest: Clear. Cardiovascular: Regular rate and rhythm. Abdomen was soft with positive bowel sounds. DIAGNOSTIC STUDIES/LAB DATA: His labs include a white count of 15.8 today, hematocrit of 35, platelets of 241,000 and normal INR and normal BMP today. The last night when he came in, he had a creatinine of 1.29, glucose of 209 and elevated lactic acid of 13.7 which was then corrected. Magnesium was 2.9, normal calcium, ammonia 117, CPK 285. Normal TSH. His UA had 2+ protein, trace white cells, leukocyte esterase negative, hyaline cast present. His CSF had white count of 2, red cell count of 12, 67 were lymphs, 33 were monos, his glucose was 94, protein 49. Toxicology was presumed positive for benzos and cannabinoids. Serum alcohol was negative. Serology was negative for influenza A and B. I reviewed his CT scan that he came in yesterday which showed no acute findings. IMPRESSION AND PLAN: Justino Regalado had a new onset of seizures in the setting of Parkinsonian symptoms and significant weight loss with a smoking history. I deferred to Dr. Yanes how far to pursue a cancer diagnosis, but I think this would be getting at least a chest CT given the smoking history would be useful. I am not sure whether this would be directly causing related to his seizures now. He will need an MRI scan when clinically stable. I would repeat a CT scan now to make sure that there is no evidence of stroke. We do not have an exam and it is possible that the initial CT scan missed this, if it was a significant stroke, we would see it on repeat scan. He will need an MRI scan with and without contrast when he is stable. I would also add acyclovir to his mix given his fever, seizure, and altered mental status. His EEG did not show any temporal lobe slowing, but it just showed suppression of background presumably because of the propofol. He is currently on antibiotics Keppra, which I increased to 750 twice a day for when he gets off his propofol, he will be on more therapeutic dose of Keppra. He is on lactulose and I would probably give him a banana bag with thiamine since his ammonia was elevated even though we do not have a clear drinking history. Thank you for sharing his case. [id number]/[facility] #: [id number] ALDO
--- NOTE | 2019-04-27 20:28 | EEG ---
ELECTROENCEPHALOGRAPHY: DATE OF STUDY: 04/27/19 - ROOM #ICU-05 PATIENT OF: Dr. Degroot. CLINICAL PROBLEM: This is a 58-year-old man being evaluated for new onset of seizures, who was in coma, on propofol, lactulose, Lovenox, Keppra, Pepcid, Tylenol and Ativan. REPORT: With the patient intubated and in coma, background cerebral activity consists of diffuse irregular admixture of low or moderate amplitude delta, theta and beta range frequencies. There are no clearcut epileptiform potentials or focal abnormalities. CLINICAL IMPRESSION: This EEG with the patient in coma, on propofol and intubated, shows no epileptiform potentials or focal abnormalities. The slowing is nonspecific and may be related to medications that the patient is consuming. [id number]/[facility] #: [id number] MTDD
[2019-04-27] MEDS ORDERED: fentaNYL* 50 MCG/ML 2 ML VIAL (100 MCG VIAL) IV ONE (23:28)
[2019-04-27] MEDS ORDERED: fentaNYL* 50 MCG/ML 2 ML VIAL (100 MCG VIAL) ONE (23:32)
[2019-04-27] MEDS ORDERED: Acetaminophen IV 1GM/100ML * 100 ML IVPB ONE (23:45)
[2019-04-28] MEDS ORDERED: Cefepime 1 GM in Dextrose(*) 1 GM/50 ML q12h (Duplex) IV ONE (00:01)
[2019-04-28] MEDS: levETIRAcetam 500 MG IVPREMIX* 500 MG/100 ML BAG IV SCH ×2 (01:01→12:45)
[2019-04-28] MEDS: Propofol* 100 ML IV SCH ×3 (02:12→17:58)
[2019-04-28] MEDS: Chlorhexidine MOUTHWASH 0.12%* 15 ML UDC SWISH SPIT SCH ×5 (05:15→19:00)
[2019-04-28] MEDS ORDERED: Acetaminophen IV 1GM/100ML * 100 ML IVPB PRN (06:30)
[2019-04-28 06:35] LABS: ABS Basophils 0.1 10^3/ul (0-0.2); ABS Eosinophils 0.1 10^3/ul (0-0.6); ABS Lymphocytes 0.7 10^3/ul (1.0-4.8); ABS Monocytes 0.8 10^3/ul (0-0.8); ABS Neutrophils 10.2 10^3/ul (1.5-7.7); Eosinophil % 1.1 %; Hematocrit 36 % (42-52); Hemoglobin 12.4 g/dL (14.0-18.0); Mean Corpuscular HGB Conc 34 g/dL (31-36); Mean Corpuscular Hemoglobin 33 pg (27-31); Mean Corpuscular Volume 96 fL (80-94); Mean Platelet Volume 7.3 fL (7.4-10.4); Platelet Count 205 10^3/uL (150-450); Red Cell Distribution Width 15 % (10-15); White Blood Count 11.9 10^3/uL (3.5-10.8)
[2019-04-28 06:50] LABS: BUN/Creatinine Ratio 11.8 (8-20); Calcium 8.4 mg/dL (8.6-10.3); EGFR Non-African American 83.5 (>60); Magnesium 2.3 mg/dL (1.9-2.7)
[2019-04-28 08:17] LABS: C Reactive Protein 136.06 mg/L (<8.01)
[2019-04-28] MEDS: Cefepime 2 GM in Dextrose(*) 2 GM/50 ML BAG IV SCH ×2 (08:17→16:51)
[2019-04-28] MEDS: Famotidine SUSP ORALSYR 8 MG/ML G TUBE SCH (09:07)
[2019-04-28] MEDS: NS 0.9% 1000 ML** 1,000 ML IV SCH ×2 (09:08→19:00)
[2019-04-28] MEDS ORDERED: Dexmedetomidine* 1,000 MCG in NS 0.9% 250 ML* 240 ML IV SCH (13:00)
--- NOTE | 2019-04-28 17:14 | PN ---
Date of Service: 04/28/19 Critical Care Services: Off propofol for 45 minutes today and did not awaken. Fever to 102 last night without apparent source - is on cefepime at 2 g q8 h. Vital Signs: Temp Pulse Resp BP SpO2 FiO2 99.0 F 52 19 99/63 98 25 Physical Exam: Gen:Unresponsive - is agitated but unaware. . HEENT:Pupils modposition and reactive Lungs: Coarse rhonchi Cardiac: Reg rhythm Abdomen: Not distended Extremities:No cyanosis or edema Neuro: moves all extremities equallyand has good strength Fluid Balance (Past 24 Hours): 04/27/19 04/28/19 06:59 06:59 Intake Total 1239 3930 Output Total 625 1380 Balance 614 2550 Weight 152 lb 1 oz 164 lb 3.91 oz Intake: IV Fluids 681 3330 NS (0.9%) 631 3330 IVPB 420 59 K 213 keppra 207 59 Medicated IV 138 331 CC - Propofol/Diprivan 138 331 Tube Feeding Flush Amount 210 Output: Christianson 625 1380 Labs: Laboratory Results - last 24 hr 04/27/19 04/27/19 04/28/19 16:46 17:31 05:16 WBC RBC Hgb Hct MCV MCH MCHC RDW Plt Count MPV Neut % (Auto) Lymph % (Auto) [place] % (Auto) Eos % (Auto) Baso % (Auto) Absolute Neuts (auto) Absolute Lymphs (auto) Absolute Monos (auto) Absolute Eos (auto) Absolute Basos (auto) Absolute Nucleated RBC Nucleated RBC % Sodium Potassium Chloride Carbon Dioxide Anion Gap BUN Creatinine Est GFR ( Amer) Est GFR (Non-Af Amer) BUN/Creatinine Ratio Glucose Calcium Magnesium Ammonia TNP 69 H 55 H C-Reactive Protein 04/28/19 04/28/19 05:16 05:16 WBC 11.9 H RBC 3.80 L Hgb 12.4 L Hct 36 L MCV 96 H MCH 33 H MCHC 34 RDW 15 Plt Count 205 MPV 7.3 L Neut % (Auto) 85.7 Lymph % (Auto) 6.0 [place] % (Auto) 6.8 Eos % (Auto) 1.1 Baso % (Auto) 0.4 Absolute Neuts (auto) 10.2 H Absolute Lymphs (auto) 0.7 L Absolute Monos (auto) 0.8 Absolute Eos (auto) 0.1 Absolute Basos (auto) 0.1 Absolute Nucleated RBC 0.0 Nucleated RBC % 0.0 Sodium 138 Potassium 4.0 Chloride 110 Carbon Dioxide 22 Anion Gap 6 BUN 11 Creatinine 0.93 Est GFR ( Amer) 101.0 Est GFR (Non-Af Amer) 83.5 BUN/Creatinine Ratio 11.8 Glucose 87 Calcium 8.4 L Magnesium 2.3 Ammonia C-Reactive Protein 136.06 H Studies: MRI scheduled. CXR - no infiltrates Nutrition: Tube feedings started (promote at 60 cc/hr) Impression: Mental status continues to be problematic, and we are not sure of the etiology of the problem. No obvious infection at the present time despite the fever to 102 overnight. Plan: MRI tomorrow. Continue empiric antibiotic coverage. Critical Care Time: 40 minutes
[2019-04-28] MEDS ORDERED: fentaNYL* 50 MCG/ML 2 ML VIAL (100 MCG VIAL) IV PRN (17:35)
--- NOTE | 2019-04-28 20:17 | PN ---
NEUROLOGICAL FOLLOWUP: DATE OF SERVICE: 04/28/19 PATIENT OF: Dr. Degroot. HISTORY OF PRESENT ILLNESS: This is the neurological followup on this 58-year- old man, status post seizures and encephalopathy, put on propofol. 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 He was reaching for his ET tube and having semipurposeful movements, although he did not follow commands and he appeared strong on both sides. He has had no further seizures. His repeat CT scan did not show any evidence of stroke. He had a chest CT scan that showed bibasilar atelectatic scars but no other findings. Labs from today show a white count of 11.9, hematocrit of 36 , platelets of 205, normal CMP with a C-reactive protein of 136, calcium of 8.4. CURRENT MEDICATIONS: Include: 1. Cefepime. 2. propofol drip. 3. Lovenox subcu. 4. Pepcid 20 mg per G-tube. 5. Keppra 500 twice a day. 6. He has been on propofol. PHYSICAL EXAMINATION: On exam, temperature is currently 99, pulse 51, respirations 15, blood pressure 110/65. ASSESSMENT AND PLAN: Despite the sedation, when I asked in loud voice for him to open his eyes, he opened his eyes but if this is nonspecific response or not is hard to say. He began moving his left arm and leg and then moved his right arm and leg. His toes were downgoing. He did not follow any specific commands other than when I began speaking to him loudly, he opened his eyes. I think that that was a nonspecific reaction. Dr. Degroot had called me earlier and he was concerned about his lack of response and we are getting an MRI scan with and without contrast. This is reasonable, but it may be that we are just seeing sedative effect, apparently his family and friends say that he gets upset easily. I am not sure if this is true or not, but I think that his reactions when sedation is decreased or weaned may be normal and it may be important to try to push through and see how he is when he is off sedation for longer period of time and hopefully extubate him. I deferred to Dr. Degroot in terms of making sure infectious etiologies are treated. His CRP is high and that is nonspecific finding. He has had his negative chest CT scan. I would consider getting an ALEK and a rheumatoid factor with tomorrow's blood work. I will continue the Keppra for now and will be signing his case off to the oncoming neurologist on-call. Thank you for sharing his case. [id number]/[facility] #: [id number] ALDO
[2019-04-28] MEDS: Enoxaparin(*) 40 MG/0.4 ML SYR SUBCUT SCH (22:20)
[2019-04-29] MEDS: Cefepime 2 GM in Dextrose(*) 2 GM/50 ML BAG IV SCH ×3 (00:01→16:38)
[2019-04-29] MEDS: Chlorhexidine MOUTHWASH 0.12%* 15 ML UDC SWISH SPIT SCH ×4 (00:01→12:21)
[2019-04-29] MEDS: levETIRAcetam 500 MG IVPREMIX* 500 MG/100 ML BAG IV SCH ×2 (01:03→13:18)
[2019-04-29] MEDS: NS 0.9% 1000 ML** 1,000 ML IV SCH (03:58)
[2019-04-29] MEDS: Propofol* 100 ML IV SCH (04:13)
[2019-04-29] MEDS: Famotidine SUSP ORALSYR 8 MG/ML G TUBE SCH (07:16)
[2019-04-29 07:20] LABS: Hematocrit 38 % (42-52); Hemoglobin 12.6 g/dL (14.0-18.0); Mean Corpuscular HGB Conc 33 g/dL (31-36); Mean Corpuscular Hemoglobin 32 pg (27-31); Mean Corpuscular Volume 96 fL (80-94); Mean Platelet Volume 7.5 fL (7.4-10.4); Platelet Count 174 10^3/uL (150-450); Red Blood Count 3.92 10^6 /uL (4.18-5.48); Red Cell Distribution Width 14 % (10-15); White Blood Count 10.9 10^3/uL (3.5-10.8)
[2019-04-29 07:36] LABS: BUN/Creatinine Ratio 14.1 (8-20); Calcium 8.8 mg/dL (8.6-10.3); EGFR African American 123.7 (>60); EGFR Non-African American 102.2 (>60); Potassium 3.7 mmol/L (3.5-5.0)
[2019-04-29] MEDS ORDERED: NS 0.9% 1000 ML** 1,000 ML IV SCH (08:09)
--- NOTE | 2019-04-29 08:36 | PN ---
Progress Note - Progress Note Date of Service: 04/29/19 Note: Progress Note -- Critical Care 24 hour events/significant events: - Low grade fevers overnight - Remains intubated and sedated on propofol ROS:ROS unable to be obtained secondary to intubated/sedated Tele: Sinus kodak Vitals: Vital Signs 04/28/19 04/28/19 04/28/19 08:15 08:30 08:45 Temperature 99.9 F 100.0 F 100.2 F Pulse Rate 57 59 58 Respiratory Rate Blood Pressure 137/75 136/76 129/75 (mmHg) O2 Sat by Pulse 98 98 97 Oximetry 04/28/19 04/28/19 04/28/19 09:00 09:15 09:30 Temperature 100.2 F 100.4 F 100.4 F Pulse Rate 63 65 64 Respiratory 19 Rate Blood Pressure 128/78 137/78 121/74 (mmHg) O2 Sat by Pulse 96 95 94 Oximetry 04/28/19 04/28/19 04/28/19 09:45 10:00 10:15 Temperature 100.4 F 100.2 F Pulse Rate 61 62 61 Respiratory 19 Rate Blood Pressure 122/70 95/57 (mmHg) O2 Sat by Pulse 96 93 92 Oximetry 04/28/19 04/28/19 04/28/19 10:30 10:31 10:45 Temperature 100.0 F 100.0 F 99.7 F Pulse Rate 58 58 56 Respiratory Rate Blood Pressure 90/56 93/59 98/63 (mmHg) O2 Sat by Pulse 93 93 94 Oximetry 04/28/19 04/28/19 04/28/19 11:00 11:15 11:30 Temperature 99.5 F 99.5 F 99.5 F Pulse Rate 57 58 57 Respiratory 19 Rate Blood Pressure 153/78 143/79 143/76 (mmHg) O2 Sat by Pulse 98 97 95 Oximetry 04/28/19 04/28/19 04/28/19 11:45 11:50 12:00 Temperature 99.7 F 99.7 F 99.5 F Pulse Rate 66 61 59 Respiratory 19 Rate Blood Pressure 152/78 125/70 (mmHg) O2 Sat by Pulse 98 98 96 Oximetry 04/28/19 04/28/19 04/28/19 12:15 12:30 12:45 Temperature 99.7 F 99.7 F 99.3 F Pulse Rate 57 59 58 Respiratory Rate Blood Pressure 100/61 94/54 89/54 (mmHg) O2 Sat by Pulse 95 93 93 Oximetry 04/28/19 04/28/19 04/28/19 13:00 13:15 13:30 Temperature 99.1 F 99.1 F 99.1 F Pulse Rate 55 53 54 Respiratory 19 Rate Blood Pressure 93/56 102/62 95/60 (mmHg) O2 Sat by Pulse 94 96 95 Oximetry 04/28/19 04/28/19 04/28/19 13:45 14:00 14:15 Temperature 99.0 F 99.0 F 99.0 F Pulse Rate 54 54 50 Respiratory 19 Rate Blood Pressure 95/56 94/56 110/65 (mmHg) O2 Sat by Pulse 95 95 97 Oximetry 04/28/19 04/28/19 04/28/19 14:30 14:45 14:48 Temperature 99.0 F 99.1 F 99.1 F Pulse Rate 53 54 55 Respiratory Rate Blood Pressure 138/74 134/84 (mmHg) O2 Sat by Pulse 97 97 97 Oximetry 04/28/19 04/28/19 04/28/19 15:00 15:15 15:30 Temperature 99.3 F 99.3 F 99.5 F Pulse Rate 60 53 53 Respiratory 19 Rate Blood Pressure 148/99 118/70 100/63 (mmHg) O2 Sat by Pulse 99 97 96 Oximetry 04/28/19 04/28/19 04/28/19 15:45 16:00 16:15 Temperature 99.3 F 99.3 F 99.0 F Pulse Rate 54 54 52 Respiratory 19 Rate Blood Pressure 93/60 98/58 99/63 (mmHg) O2 Sat by Pulse 97 97 98 Oximetry 04/28/19 04/28/19 04/28/19 16:30 16:32 16:45 Temperature 98.8 F 98.8 F 98.8 F Pulse Rate 51 51 52 Respiratory Rate Blood Pressure 87/55 89/55 90/57 (mmHg) O2 Sat by Pulse 96 96 96 Oximetry 04/28/19 04/28/19 04/28/19 17:00 17:15 17:30 Temperature 98.4 F 98.2 F 98.1 F Pulse Rate 50 48 46 Respiratory 19 Rate Blood Pressure 94/62 102/66 112/70 (mmHg) O2 Sat by Pulse 97 98 98 Oximetry 04/28/19 04/28/19 04/28/19 17:45 18:00 18:15 Temperature 97.9 F 98.1 F 98.1 F Pulse Rate 42 45 49 Respiratory 16 Rate Blood Pressure 121/70 103/67 93/62 (mmHg) O2 Sat by Pulse 99 98 97 Oximetry 04/28/19 04/28/19 04/28/19 18:30 18:45 19:00 Temperature 97.9 F 97.9 F 97.9 F Pulse Rate 45 50 52 Respiratory 22 Rate Blood Pressure 109/70 118/72 139/76 (mmHg) O2 Sat by Pulse 99 99 99 Oximetry 04/28/19 04/28/19 04/28/19 19:15 19:30 19:31 Temperature 98.2 F 98.4 F 98.4 F Pulse Rate 48 49 49 Respiratory Rate Blood Pressure 141/81 138/80 (mmHg) O2 Sat by Pulse 99 98 98 Oximetry 04/28/19 04/28/19 04/28/19 19:45 20:00 20:15 Temperature 98.8 F 99.1 F 99.5 F Pulse Rate 49 49 52 Respiratory 20 Rate Blood Pressure 137/77 128/76 (mmHg) O2 Sat by Pulse 97 97 97 Oximetry 04/28/19 04/28/19 04/28/19 20:30 20:45 21:00 Temperature 99.7 F 99.9 F 100.0 F Pulse Rate 51 50 51 Respiratory 22 Rate Blood Pressure 125/71 116/73 (mmHg) O2 Sat by Pulse 97 97 97 Oximetry 04/28/19 04/28/19 04/28/19 21:15 21:30 21:31 Temperature 100.0 F 100.0 F 100.2 F Pulse Rate 53 57 53 Respiratory Rate Blood Pressure 139/89 (mmHg) O2 Sat by Pulse 98 96 97 Oximetry 04/28/19 04/28/19 04/28/19 21:45 22:00 22:15 Temperature 100.0 F 100.2 F 100.2 F Pulse Rate 55 56 55 Respiratory 21 Rate Blood Pressure 128/75 (mmHg) O2 Sat by Pulse 95 95 97 Oximetry 04/28/19 04/28/19 04/28/19 22:30 22:45 23:00 Temperature 100.4 F 100.4 F 100.6 F Pulse Rate 56 54 62 Respiratory 22 Rate Blood Pressure 120/73 137/74 (mmHg) O2 Sat by Pulse 96 96 96 Oximetry 04/28/19 04/28/19 04/28/19 23:15 23:16 23:30 Temperature 100.6 F 100.6 F 100.6 F Pulse Rate 55 54 55 Respiratory Rate Blood Pressure (mmHg) O2 Sat by Pulse 97 97 96 Oximetry 04/28/19 04/29/19 04/29/19 23:45 00:00 00:15 Temperature 100.6 F 100.6 F 100.6 F Pulse Rate 54 56 55 Respiratory 18 Rate Blood Pressure 155/75 (mmHg) O2 Sat by Pulse 97 96 96 Oximetry 04/29/19 04/29/19 04/29/19 00:30 00:45 01:00 Temperature 100.8 F 100.6 F 100.6 F Pulse Rate 56 54 55 Respiratory 20 Rate Blood Pressure 149/78 (mmHg) O2 Sat by Pulse 96 96 96 Oximetry 04/29/19 04/29/19 04/29/19 01:15 01:30 01:45 Temperature 100.6 F 100.6 F 100.4 F Pulse Rate 54 51 54 Respiratory Rate Blood Pressure (mmHg) O2 Sat by Pulse 97 97 97 Oximetry 04/29/19 04/29/19 04/29/19 02:00 02:15 02:30 Temperature 100.4 F 100.4 F 100.4 F Pulse Rate 51 52 53 Respiratory 20 Rate Blood Pressure 128/74 (mmHg) O2 Sat by Pulse 97 97 97 Oximetry 04/29/19 04/29/19 04/29/19 02:45 03:00 03:15 Temperature 100.2 F 100.2 F 100.2 F Pulse Rate 60 50 53 Respiratory 20 Rate Blood Pressure 136/75 (mmHg) O2 Sat by Pulse 98 98 98 Oximetry 04/29/19 04/29/19 04/29/19 03:30 03:45 03:56 Temperature 100.2 F 100.0 F Pulse Rate 54 47 Respiratory 18 Rate Blood Pressure (mmHg) O2 Sat by Pulse 97 97 Oximetry 04/29/19 04/29/19 04/29/19 04:00 04:15 04:30 Temperature 100.0 F 99.9 F 99.7 F Pulse Rate 54 50 50 Respiratory Rate Blood Pressure 143/81 (mmHg) O2 Sat by Pulse 97 96 97 Oximetry 0204/29/19 04/29/19 04:45 05:00 05:15 Temperature 99.9 F 99.7 F 99.7 F Pulse Rate 49 52 51 Respiratory 20 Rate Blood Pressure 143/78 (mmHg) O2 Sat by Pulse 96 97 97 Oximetry 04/29/19 04/29/19 04/29/19 05:30 05:45 06:00 Temperature 99.7 F 99.7 F 99.7 F Pulse Rate 50 52 54 Respiratory 18 Rate Blood Pressure (mmHg) O2 Sat by Pulse 97 97 97 Oximetry 04/29/19 04/29/19 04/29/19 06:01 06:15 06:30 Temperature 99.7 F 99.7 F 99.7 F Pulse Rate 56 56 53 Respiratory Rate Blood Pressure 128/78 (mmHg) O2 Sat by Pulse 97 96 94 Oximetry 04/29/19 04/29/19 04/29/19 06:45 07:00 07:15 Temperature 99.5 F 99.5 F 99.7 F Pulse Rate 52 52 52 Respiratory 18 Rate Blood Pressure 143/81 (mmHg) O2 Sat by Pulse 96 96 96 Oximetry 04/29/19 04/29/19 07:30 07:45 Temperature 99.0 F 99.5 F Pulse Rate 57 55 Respiratory Rate Blood Pressure (mmHg) O2 Sat by Pulse 96 95 Oximetry Intake and Output Last 24 Hours 04/27/19 04/28/19 04/29/19 04/30/19 06:59 06:59 06:59 06:59 Intake Total 1239 3930 3761.1 Output Total 625 1380 1397 100 Balance 614 2550 2364.1 -100 Weight 152 lb 1 oz 164 lb 3.91 oz 160 lb 11.472 oz Intake: IV Fluids 681 3330 2624 NS (0.9%) 631 3330 2624 IVPB 420 59 177 K 213 cefepime 69 keppra 207 59 108 Medicated IV 138 331 372.1 CC - Dexmedetomidine/ 9.1 Precedex CC - Propofol/Diprivan 138 331 363 Tube Feeding 588 Tube Feeding Flush Amount 210 Output: Ordaz 625 1380 1397 100 Vent: PS 5/5 Infusions: NS @ 125, propofol @ 25 Medications: Acetaminophen (Tylenol Adult Liq*) 650 mg PO Q4H PRN PRN Reason: MILD PAIN or TEMP > 100.4 Last Admin: 04/27/19 21:47 Dose: 650 mg Chlorhexidine Gluconate (Peridex Mouth Wash 0.12%*) 15 ml SWISH SPIT Q4H [facility] Last Admin: 04/29/19 07:16 Dose: 15 ml Enoxaparin Sodium (Lovenox(*)) 40 mg SUBCUT Q24H [facility] Last Admin: 04/28/19 22:20 Dose: 40 mg Famotidine (Pepcid Susp 8mg/Ml) 20 mg G TUBE DAILY [facility] Last Admin: 04/29/19 07:16 Dose: 20 mg Fentanyl Citrate (Fentanyl*) 25 mcg IV Q2H PRN PRN Reason: .PAIN Propofol (Diprivan*) 100 mls @ 27.76 mls/hr IV .PER PROTOCOL [facility]YC[facility]; Protocol Last Admin: 04/29/19 04:13 Dose: 10.4 mls/hr Levetiracetam (Keppra Iv Premix*) 500 mg in 100 mls @ 400 mls/hr IV Q12H [facility] Last Admin: 04/29/19 01:03 Dose: 400 mls/hr Cefepime HCl (Maxipime 2 Gm In Dextrose Duplex (*)) 2 gm in 50 mls @ 100 mls/ hr IV Q8H [facility] Last Admin: 04/29/19 07:16 Dose: 100 mls/hr Sodium Chloride (Ns 0.9% 1000 Ml) 1,000 mls @ 50 mls/hr IV PER RATE [facility] Miscellaneous (Ativan Pyxis Bray) 1 ea N/A .ATIVAN IV BRAY PRN PRN Reason: PYXIS BRAY Physical Exam: Constitutional: propofol paused for exam, opens eyes to command, no apparent distress Head: normocephalic, atraumatic Eyes: no pallor, no icterus ENT: moist mucous membranes Neck: soft, supple CVS: kodak, regular, no murmur Chest/Resp: bilateral air entry, diminished in bases, no rhales, no wheeze, no rhonchi, no acc muscle use Abdomen/GI: soft, nontender, nondistended, BS+ Ext/Msk: warm, pulses+, no edema Skin: intact, warm Neuro: propofol paused for exam. Initally only withdrew extremities to pain, but as time went on, patient did open eyes to commands, followed most commands in all extremities. Labs: Laboratory Results - last 24 hr 04/28/19 04/29/19 04/29/19 05:16 07:13 07:13 WBC 10.9 H RBC 3.92 L Hgb 12.6 L Hct 38 L MCV 96 H MCH 32 H MCHC 33 RDW 14 Plt Count 174 MPV 7.5 Sodium 140 Potassium 3.7 Chloride 111 Carbon Dioxide 23 Anion Gap 6 BUN 11 Creatinine 0.78 Est GFR ( Amer) 123.7 Est GFR (Non-Af Amer) 102.2 BUN/Creatinine Ratio 14.1 Glucose 106 H Calcium 8.8 C-Reactive Protein 136.06 H Imaging: Chest xray 04/28: No active cardiopulmonary disease CT brain 04/27: negative EEG 04/27: Negative Assessment: 58M with known medical history of newly diagnosed Parkinson's disease and tobacco abuse, presents to ED on 04/26/19 after having seizure like movements with urinary incontinence at home. This lasted 3-5 minutes. In the ED , he was very combative, was sedated and then intubated. There was a concern for meningitis so LP was done and started on abx. - AMS - R/o meningitis - H. influenzea PNA - Seizures - Encephalopathy Plan: Neuro- - AMS/New onset seizures: EEG done was negative. - Patient remains on propofol for sedation - Seizures: acute. Continue Keppra 500mgBID. Will need MRI with and without contrast when stable. Neurology on board -Delirium prec; avoid BDZ CVS- - No active issues -Maintain MAP>65 as long as SBP<160 Resp- - Intubated for airway protection. Will stop propofol and allow patient to wake. Put on PS. - If patient wakes and tolerates PS, will extubate -Wean Fio2 to keep sat>92% -Bronchodilators PRN, Aspiration prec, Pulmonary Toilet -VAP bundle ID- - H. Influenzae PNA: acute. - Continue Cefepime. - Goal temp<101 GI- -Nutrition: TF. Will hold for possible extubation. Decreased IVF to 50cc/hr -GI prophylaxis: pepcid Renal- -strict I/O, replete to keep K>4, Mg>2 -ordaz Heme- - No active issues - Continue lovenox for DVT prophylaxis Endo-Maintain BG<200, insulin protocol as needed Musculsk- pressure ulcer prophylaxis. Bedrest. Wounds- none Nutrition- TF DVT prophylaxis: lovenox GI prophylaxis: pepcid Ordaz Catheter: continue Disposition: Patient requires Critical Care/ICU for AMS, seizures, intubated for airway protection, PNA Patient clinical status: critical Code Status: Full Total Critical Care time is 30minutes
--- NOTE | 2019-04-29 17:02 | CONS ---
FOLLOWUP NOTE: DATE OF FOLLOWUP: 04/29/19 GOVERNMENT CLERK: Dr. Wagner. CHIEF COMPLAINT: Seizure, fever. INTERVAL HISTORY: Since yesterday, Mr. Regalado has been extubated. He is very hoarse right now. He denies prior seizure. He reports a prior head injury, but it was without loss of consciousness. The woman who is in the room with him today, I am not sure if his girlfriend, says he has been progressively losing his memory. MEDICATIONS: Reviewed and he is on: 1. Cefepime. 2. Keppra 500 mg q.12 hours IV. PHYSICAL EXAM: On limited exam, his most recent temperature is 99.0 by Christianson, blood pressure 131/71, heart rate in the 50s. IMPRESSION AND PLAN: He has been successfully extubated. I reviewed his laboratory studies. He is pending for an MRI with and without contrast tomorrow. I will follow him up tomorrow when he should be more lucid. [id number]/[facility] #: [id number] [facility] MEDICAL CENTERDwain
[2019-04-29] MEDS: Enoxaparin(*) 40 MG/0.4 ML SYR SUBCUT SCH (22:00)
[2019-04-30] MEDS: Cefepime 2 GM in Dextrose(*) 2 GM/50 ML BAG IV SCH ×4 (00:13→23:58)
[2019-04-30] MEDS: levETIRAcetam 500 MG IVPREMIX* 500 MG/100 ML BAG IV SCH ×2 (01:37→12:32)
[2019-04-30 05:40] LABS: Hematocrit 36 % (42-52); Hemoglobin 12.1 g/dL (14.0-18.0); Mean Corpuscular HGB Conc 34 g/dL (31-36); Mean Corpuscular Hemoglobin 32 pg (27-31); Mean Corpuscular Volume 95 fL (80-94); Mean Platelet Volume 7.8 fL (7.4-10.4); Platelet Count 179 10^3/uL (150-450); Red Blood Count 3.76 10^6 /uL (4.18-5.48); Red Cell Distribution Width 14 % (10-15); White Blood Count 9.8 10^3/uL (3.5-10.8)
[2019-04-30 05:56] LABS: BUN/Creatinine Ratio 13.5 (8-20); Calcium 8.1 mg/dL (8.6-10.3); EGFR African American 131.4 (>60); EGFR Non-African American 108.6 (>60); Potassium 3.6 mmol/L (3.5-5.0)
[2019-04-30] MEDS ORDERED: KCL 20 MEQ/100 ML IVPREMIX* 20 MEQ/100 ML BAG IV ONE (08:00)
[2019-04-30] MEDS ORDERED: Potassium Chloride* LIQUID 20 MEQ/15 ML UDC PO ONE (08:21)
--- NOTE | 2019-04-30 08:30 | PN ---
Progress Note - Progress Note Date of Service: 04/30/19 Note: Progress Note -- Critical Care 24 hour events/significant events: - Successfully extubated yesterday - No changes overnight ROS:ROS unable to be obtained d/t AMS Tele: Sinus Vitals: Vital Signs 04/29/19 04/29/19 04/29/19 08:30 08:45 09:00 Temperature 99.3 F 99.1 F 99.1 F Pulse Rate 54 56 60 Respiratory 31 29 Rate Blood Pressure 125/70 (mmHg) O2 Sat by Pulse 96 94 95 Oximetry 04/29/19 04/29/19 04/29/19 09:15 09:30 09:45 Temperature 99.1 F 99.1 F 99.0 F Pulse Rate 53 56 55 Respiratory 34 32 29 Rate Blood Pressure (mmHg) O2 Sat by Pulse 95 99 97 Oximetry 04/29/19 04/29/19 04/29/19 10:00 10:15 10:30 Temperature 99.0 F 99.0 F 98.8 F Pulse Rate 56 54 68 Respiratory 15 32 12 Rate Blood Pressure 130/68 (mmHg) O2 Sat by Pulse 97 98 96 Oximetry 04/29/19 04/29/19 04/29/19 10:45 11:00 11:34 Temperature 99.0 F 99.0 F Pulse Rate 50 52 51 Respiratory 25 13 19 Rate Blood Pressure 149/76 (mmHg) O2 Sat by Pulse 95 95 94 Oximetry 04/29/19 04/29/19 04/29/19 11:35 11:45 12:00 Temperature Pulse Rate 54 50 54 Respiratory 28 27 25 Rate Blood Pressure 131/71 145/68 (mmHg) O2 Sat by Pulse 93 96 95 Oximetry 04/29/19 04/29/19 04/29/19 12:15 12:30 12:45 Temperature Pulse Rate 50 50 118 Respiratory 27 26 22 Rate Blood Pressure (mmHg) O2 Sat by Pulse 95 99 71 Oximetry 04/29/19 04/29/19 04/29/19 13:00 13:01 13:15 Temperature Pulse Rate 53 53 53 Respiratory 31 23 20 Rate Blood Pressure 129/57 (mmHg) O2 Sat by Pulse 97 97 97 Oximetry 04/29/19 04/29/19 04/29/19 13:30 13:45 14:00 Temperature Pulse Rate 55 51 54 Respiratory 21 31 26 Rate Blood Pressure 120/68 (mmHg) O2 Sat by Pulse 96 95 Oximetry 04/29/19 04/29/19 04/29/19 14:15 14:30 14:45 Temperature Pulse Rate 54 52 54 Respiratory 27 31 32 Rate Blood Pressure (mmHg) O2 Sat by Pulse 96 96 97 Oximetry 04/29/19 04/29/19 04/29/19 15:00 15:01 15:15 Temperature Pulse Rate 53 58 56 Respiratory 37 13 21 Rate Blood Pressure 127/64 (mmHg) O2 Sat by Pulse 97 95 94 Oximetry 04/29/19 04/29/19 04/29/19 15:30 15:45 16:00 Temperature Pulse Rate 53 58 53 Respiratory 28 25 33 Rate Blood Pressure 128/72 (mmHg) O2 Sat by Pulse 95 94 95 Oximetry 04/29/19 04/29/19 04/29/19 16:15 16:30 16:49 Temperature Pulse Rate 55 53 Respiratory 27 32 30 Rate Blood Pressure (mmHg) O2 Sat by Pulse 93 96 Oximetry 04/29/19 04/29/19 04/29/19 17:00 17:01 17:15 Temperature Pulse Rate 54 57 53 Respiratory 27 26 36 Rate Blood Pressure 137/79 (mmHg) O2 Sat by Pulse 93 98 93 Oximetry 04/29/19 04/29/19 04/29/19 17:30 17:45 18:00 Temperature Pulse Rate 60 56 54 Respiratory 22 39 21 Rate Blood Pressure (mmHg) O2 Sat by Pulse 94 94 94 Oximetry 04/29/19 04/29/19 04/29/19 18:01 18:15 19:00 Temperature Pulse Rate 58 61 62 Respiratory 27 24 Rate Blood Pressure 137/62 (mmHg) O2 Sat by Pulse 91 91 91 Oximetry 04/29/19 04/29/19 04/29/19 19:16 19:21 20:00 Temperature 99.1 F Pulse Rate 60 Respiratory 21 30 Rate Blood Pressure 126/83 (mmHg) O2 Sat by Pulse 88 Oximetry 04/29/19 04/29/19 04/29/19 20:01 21:00 21:12 Temperature Pulse Rate 57 63 58 Respiratory 32 24 32 Rate Blood Pressure 126/69 126/68 (mmHg) O2 Sat by Pulse 94 94 95 Oximetry 04/29/19 04/29/19 04/29/19 22:00 23:00 23:23 Temperature 99.9 F Pulse Rate 58 64 Respiratory 20 29 Rate Blood Pressure 103/52 133/82 (mmHg) O2 Sat by Pulse 96 92 Oximetry 04/30/19 04/30/19 04/30/19 00:00 01:00 02:00 Temperature Pulse Rate 67 63 64 Respiratory 24 43 28 Rate Blood Pressure 129/74 123/63 124/64 (mmHg) O2 Sat by Pulse 92 94 95 Oximetry 04/30/19 04/30/19 04/30/19 03:00 04:00 05:00 Temperature 99.8 F Pulse Rate 64 65 65 Respiratory 41 30 40 Rate Blood Pressure 120/58 124/61 114/64 (mmHg) O2 Sat by Pulse 94 94 94 Oximetry 04/30/19 04/30/19 04/30/19 06:00 07:00 07:44 Temperature 100.8 F Pulse Rate 68 62 Respiratory 32 40 Rate Blood Pressure 125/68 126/53 (mmHg) O2 Sat by Pulse 93 92 Oximetry Intake and Output Last 24 Hours 04/28/19 04/29/19 04/30/19 05/01/19 06:59 06:59 06:59 06:59 Intake Total 3930 3761.1 1461 Output Total 1380 1397 1650 Balance 2550 2364.1 -189 Weight 164 lb 3.91 oz 160 lb 11.472 oz 163 lb 5.8 oz 163 lb 5.8 oz Intake: IV Fluids 3330 2624 1202 NS (0.9%) 3330 2624 1152 cefepime 50 IVPB 59 177 235 cefepime 69 130 keppra 59 108 105 Medicated IV 331 372.1 24 CC - Dexmedetomidine/ 9.1 Precedex CC - Propofol/Diprivan 331 363 24 Oral 0 Tube Feeding 588 Tube Feeding Flush Amount 210 Output: Urine 925 Christianson 1380 1397 725 Other: Estimated Void Medium # Voids 1 O2: 2LNC Infusions: NS @ 50 Medications: Acetaminophen (Tylenol Adult Liq*) 650 mg PO Q4H PRN PRN Reason: MILD PAIN or TEMP > 100.4 Last Admin: 04/27/19 21:47 Dose: 650 mg Bisacodyl (Dulcolax Supp*) 10 mg MI DAILY [facility] Enoxaparin Sodium (Lovenox(*)) 40 mg SUBCUT Q24H [facility] Last Admin: 04/29/19 22:00 Dose: 40 mg Famotidine (Pepcid Susp 8mg/Ml) 20 mg G TUBE DAILY [facility] Last Admin: 04/29/19 07:16 Dose: 20 mg Levetiracetam (Keppra Iv Premix*) 500 mg in 100 mls @ 400 mls/hr IV Q12H [facility] Last Admin: 04/30/19 01:37 Dose: 400 mls/hr Cefepime HCl (Maxipime 2 Gm In Dextrose Duplex (*)) 2 gm in 50 mls @ 100 mls/ hr IV Q8H [facility] Last Admin: 04/30/19 00:13 Dose: 100 mls/hr Sodium Chloride (Ns 0.9% 1000 Ml) 1,000 mls @ 50 mls/hr IV .PER RATE [facility] Potassium Chloride (Potassium Chloride 20 Meq/100 Ml Ivpremix*) 20 meq in 100 mls @ 50 mls/hr IV ONCE ONE Stop: 04/30/19 09:59 Miscellaneous (Ativan Pyxis Bray) 1 ea N/A .ATIVAN IV BRAY PRN PRN Reason: PYXIS BRAY Physical Exam: Constitutional: laying in bed, awake, alert, no apparent distress Head: normocephalic, atraumatic Eyes: no pallor, no icterus ENT: dry mucous membranes Neck: soft, supple CVS: normal rate, regular, no murmur Chest/Resp: bilateral air entry, diminished in bases, no rhales, no wheeze, no rhonchi, no acc muscle use Abdomen/GI: soft, nontender, nondistended, BS+ Ext/Msk: warm, pulses+, no edema Skin: intact, warm Neuro: Awakem alert, oriented x2, follows commands, speech is slowed, voice hoarse, PERRL 3mm, EOMI. Strength 5/5 all extremities, sensation intact to all extremities. Labs: Laboratory Results - last 24 hr 04/26/19 04/30/19 04/30/19 20:25 05:31 05:31 WBC 9.8 RBC 3.76 L Hgb 12.1 L Hct 36 L MCV 95 H MCH 32 H MCHC 34 RDW 14 Plt Count 179 MPV 7.8 Sodium 142 Potassium 3.6 Chloride 110 Carbon Dioxide 23 Anion Gap 9 BUN 10 Creatinine 0.74 Est GFR ( Amer) 131.4 Est GFR (Non-Af Amer) 108.6 BUN/Creatinine Ratio 13.5 Glucose 84 Calcium 8.1 L Fluid Cell Count Rvw By Imaging: Chest xray 04/28: No active cardiopulmonary disease CT brain 04/27: negative EEG 04/27: Negative Assessment: 58M with known medical history of newly diagnosed Parkinson's disease and tobacco abuse, presents to ED on 04/26/19 after having seizure like movements with urinary incontinence at home. This lasted 3-5 minutes. In the ED , he was very combative, was sedated and then intubated. There was a concern for meningitis so LP was done and started on abx. - AMS - H. influenzea PNA - Seizures - Encephalopathy Plan: Neuro- - AMS/New onset seizures: EEG done was negative. - Mental status continues to improve - Seizures: acute. Continue Keppra 500mgBID. Will need MRI today. Neurology on board -Delirium prec; avoid BDZ CVS- - No active issues -Maintain MAP>65 as long as SBP<160 Resp- - Extubated 04/29. -Wean Fio2 to keep sat>92% -Bronchodilators PRN, Aspiration prec, Pulmonary Toilet ID- - H. Influenzae PNA: acute. - Continue Cefepime x 1 week. - Goal temp<101 GI- -Nutrition: Pending [employer]. Apparently did ok with thin liquids in the evening, but meals are be held today until re-seen. Appreciate FURN[employer] f/up today. - Continues IVF until taking enough PO -GI prophylaxis: pepcid Renal- -strict I/O, replete to keep K>4, Mg>2 -Voiding Heme- - No active issues - Continue lovenox for DVT prophylaxis Endo-Maintain BG<200, insulin protocol as needed Musculsk- pressure ulcer prophylaxis. OOB. PT ordered Wounds- none Nutrition- Regular, consistency pending [employer] DVT prophylaxis: lovenox GI prophylaxis: pepcid Christianson Catheter: continue Disposition: Patient is ok for transfer to the floor Patient clinical status: stable Code Status: Full
[2019-04-30] MEDS: Docusate CAP* 100 MG PO SCH ×2 (08:47→21:36)
[2019-04-30] MEDS: Famotidine SUSP ORALSYR 8 MG/ML G TUBE SCH (08:47)
[2019-04-30] MEDS ORDERED: Gadoteridol* (CONTRAST) 279.3 MG/ML 10 ML IV ONE (10:30)
[2019-04-30] MEDS: NS 0.9% 1000 ML** 1,000 ML IV SCH (15:02)
[2019-04-30] MEDS: Enoxaparin(*) 40 MG/0.4 ML SYR SUBCUT SCH (21:36)
[2019-05-01] MEDS: levETIRAcetam 500 MG IVPREMIX* 500 MG/100 ML BAG IV SCH ×2 (01:49→14:38)
[2019-05-01] MEDS: Cefepime 2 GM in Dextrose(*) 2 GM/50 ML BAG IV SCH (09:45)
[2019-05-01] MEDS: Famotidine SUSP ORALSYR 8 MG/ML G TUBE SCH (09:46)
[2019-05-01] MEDS: Docusate CAP* 100 MG PO SCH ×2 (09:52→20:44)
--- NOTE | 2019-05-01 14:07 | PN ---
Subjective Date of Service: 05/01/19 Interval History: Mr. Regalado states that he "feels great" today. He reports a cough, stating he has always had this. He is tangential and confused at times during our conversation; reports that he went outside and smoked a cigarette today, which nursing denies. States he left at one point during his admission, although it does not appear he did. He denies CP, SOB, abd pain, n/v/d. No other complaints today. Objective Active Medications: Acetaminophen (Tylenol Adult Liq*) 650 mg PO Q4H PRN PRN Reason: MILD PAIN or TEMP > 100.4 Last Admin: 04/27/19 21:47 Dose: 650 mg Bisacodyl (Dulcolax Supp*) 10 mg [place] DAILY [facility] Last Admin: 05/01/19 09:52 Dose: 10 mg Docusate Sodium (Colace Cap*) 100 mg PO BID [facility] Last Admin: 05/01/19 09:52 Dose: 100 mg Enoxaparin Sodium (Lovenox(*)) 40 mg SUBCUT Q24H [facility] Last Admin: 04/30/19 21:36 Dose: 40 mg Famotidine (Pepcid Susp 8mg/Ml) 20 mg G TUBE DAILY [facility] Last Admin: 05/01/19 09:46 Dose: 20 mg Levetiracetam (Keppra Iv Premix*) 500 mg in 100 mls @ 400 mls/hr IV Q12H [facility] Last Admin: 05/01/19 01:49 Dose: 400 mls/hr Cefepime HCl (Maxipime 2 Gm In Dextrose Duplex (*)) 2 gm in 50 mls @ 100 mls/ hr IV Q8H [facility] Last Admin: 05/01/19 09:45 Dose: 100 mls/hr Sodium Chloride (Ns 0.9% 1000 Ml) 1,000 mls @ 50 mls/hr IV .PER RATE [facility] Last Admin: 04/30/19 15:02 Dose: 50 mls/hr Miscellaneous (Ativan Pyxis Villagomez) 1 ea N/A .ATIVAN IV VILLAGOMEZ PRN PRN Reason: PYXIS VILLAGOMEZ Vital Signs: Temp Pulse Resp BP Pulse Ox 98.2 F 44 18 137/63 96 05/01/19 08:46 05/01/19 08:46 05/01/19 08:00 05/01/19 08:46 05/01/19 08:46 Oxygen Devices in Use Now: None Appearance: Mr. Regalado is an average weight, middle-aged white male who is seen sitting up in bed eating lunch. He appears somewhat older than his stated age. Appears to be in no acute distress. Eyes: No Scleral Icterus, PERRLA Ears/Nose/Mouth/Throat: NL Teeth, Lips, Gums, Clear Oropharnyx, Mucous Membranes Moist Neck: NL Appearance and Movements; NL JVP, Trachea Midline Respiratory: Symmetrical Chest Expansion and Respiratory Effort, - - rhonchi throughout b/l lung hawthorne, L > R, without wheeze, rales Cardiovascular: NL Sounds; No Murmurs; No JVD, RRR, No Edema Abdominal: NL Sounds; No Tenderness; No Distention, No Hepatosplenomegaly Extremities: No Edema, No Clubbing, Cyanosis Neurological: Alert and Oriented x 3 - with bouts of confusion, including intermittent awareness of location Result Diagrams: 04/30/19 05:31 04/30/19 05:31 Microbiology and Other Data: Microbiology 04/26/19 20:25 CSF Gram Stain (Tube 3) - Preliminary Cerebral Spinal Fluid 04/26/19 19:15 Nasal Screen MRSA (PCR) - Final Nasal Mrsa Not Detected Diagnostic Imaging: CT brain--No acute intra-cranial pathology; CXR-wnl EKG Data: NSR Assess/Plan/Problems-Billing Assessment: 58 yo male with PMHx significant for newly diagnosed Parkinson's disease, tobacco abuse presents with cough, AMS, and was found to have H. influenzae pneumonia. - Patient Problems (1) Sepsis Comment: -met sepsis criteria at admission with tachycardia, tachypnea, leukocytosis, hypotension -sputum positive for H. influenzae; likely source pna -BC NGTD -CSF NGTD without evidence of meningitis -d/c cefepime (day 4) and start ceftriaxone -sepsis resolved (2) Haemophilus influenzae pneumonia Comment: -with associated sepsis (resolved), encephalopathy -leukocytosis resolved -sputum positive for H. influenzae -urine negative for S. pneumo, Legionella -d/c cefepime (lowers seizure threshold) in favor of ceftriaxone (3) Encephalopathy Comment: -many contributing etiologies, including toxic (medications, ammonia), metabolic (pneumonia) -continue pna treatment with ceftriaxone -was recently on lactulose; repeat ammonia level in a.m. -continue to hold home sinemet -neurology following; thank you for recommendations -also h/o parkinson's dementia x1 appx 1 year, therefore may be back to baseline ; plans to follow outpatient with Maurice Cruz -patient appears improved (4) Acute respiratory failure Comment: -requiring intubation from 03/26 - 04/29 -no longer requiring supplemental oxygen (5) Parkinsons disease Comment: -follows with Dr. Qiu -also h/o parkinson's dementia x appx 1 year; may be at baseline; plans to follow outpatient with Maurice Cruz -on outpatient Carbidopa-Levodopa 25-100 mg, 1/2 pill three times a day, which was not continued at admission, due to AMS -continue to hold Sinemet -neurology following; thank you for recommendations (6) Seizure disorder Comment: -apparent seizure disorder at admission -EEG without epileptiform changes -neurology following; continue recommended Keppra; will transition to PO (7) Tobacco abuse Comment: -offered patch, but patient declined -on MAR daily prn (8) DVT prophylaxis Comment: -Lovenox (9) Full code status Status and Disposition: Inpatient. Discharge when stable.
[2019-05-01] MEDS ORDERED: Haloperidol INJ IV/IM* 5 MG/ML AMP IV SLOW PU PRN (17:24)
[2019-05-01] MEDS: cefTRIAXone(*) 1 GM in NS 0.9% 50 ML* 50 ML IVPB SCH (17:36)
[2019-05-01] MEDS: levETIRAcetam TAB* 500 MG PO SCH (20:44)
[2019-05-01] MEDS: Enoxaparin(*) 40 MG/0.4 ML SYR SUBCUT SCH (20:45)
[2019-05-01] MEDS: Nicotine PATCH 21 MG/24 HR* PATCH TRANSDERM SCH (22:26)
[2019-05-01] MEDS: Melatonin 3 MG TAB PO PRN (22:27)
[2019-05-02 06:28] LABS: ABS Basophils 0.1 10^3/ul (0-0.2); ABS Eosinophils 0.3 10^3/ul (0-0.6); ABS Lymphocytes 2.1 10^3/ul (1.0-4.8); ABS Monocytes 0.9 10^3/ul (0-0.8); ABS Neutrophils 2.8 10^3/ul (1.5-7.7); Eosinophil % 5.1 %; Hematocrit 37 % (42-52); Hemoglobin 12.4 g/dL (14.0-18.0); Mean Corpuscular HGB Conc 34 g/dL (31-36); Mean Corpuscular Hemoglobin 32 pg (27-31); Mean Corpuscular Volume 95 fL (80-94); Mean Platelet Volume 8.1 fL (7.4-10.4); Nucleated Red Blood Cells % 0.1; Platelet Count 195 10^3/uL (150-450); Red Blood Count 3.86 10^6 /uL (4.18-5.48); Red Cell Distribution Width 14 % (10-15); White Blood Count 6.2 10^3/uL (3.5-10.8)
[2019-05-02] MEDS ORDERED: levETIRAcetam IV* 500 MG in NS 0.9% 100 ML* 100 ML IVPB ONE (11:00)
[2019-05-02] MEDS: Famotidine SUSP ORALSYR 8 MG/ML G TUBE SCH (11:26)
[2019-05-02] MEDS: Docusate CAP* 100 MG PO SCH ×2 (11:26→19:52)
[2019-05-02] MEDS: Nicotine PATCH 21 MG/24 HR* PATCH TRANSDERM SCH (11:26)
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
[2019-05-02] MEDS: levETIRAcetam TAB* 500 MG PO SCH ×2 (14:42→19:51)
[2019-05-02] MEDS: cefTRIAXone(*) 1 GM in NS 0.9% 50 ML* 50 ML IVPB SCH (16:00)
--- NOTE | 2019-05-02 17:44 | PN ---
Subjective Date of Service: 05/02/19 Interval History: Mr. Regalado states that he is feeling "better" today, but is confused at time. He denies coughing and states that he quit smoking weeks ago, but that he had one today; he is still very confused at times. He has no other complaints today. Objective Active Medications: Acetaminophen (Tylenol Adult Liq*) 650 mg PO Q4H PRN PRN Reason: MILD PAIN or TEMP > 100.4 Last Admin: 04/27/19 21:47 Dose: 650 mg Bisacodyl (Dulcolax Supp*) 10 mg OR DAILY [facility] Last Admin: 05/02/19 11:27 Dose: Not Given Docusate Sodium (Colace Cap*) 100 mg PO BID [facility] Last Admin: 05/02/19 11:26 Dose: 100 mg Enoxaparin Sodium (Lovenox(*)) 40 mg SUBCUT Q24H [facility] Last Admin: 05/01/19 20:45 Dose: 40 mg Famotidine (Pepcid Susp 8mg/Ml) 20 mg G TUBE DAILY [facility] Last Admin: 05/02/19 11:26 Dose: Not Given Sodium Chloride (Ns 0.9% 1000 Ml) 1,000 mls @ 50 mls/hr IV .PER RATE [facility] Last Admin: 04/30/19 15:02 Dose: 50 mls/hr Ceftriaxone Sodium 1 gm/ (Sodium Chloride) 50 mls @ 100 mls/hr IVPB Q24H [facility] Last Admin: 05/01/19 17:36 Dose: 100 mls/hr Levetiracetam (Keppra Tab*) 750 mg PO BID [facility] Melatonin (Melatonin) 3 mg PO BEDTIME PRN PRN Reason: INSOMNIA Last Admin: 05/01/19 22:27 Dose: 3 mg Miscellaneous (Ativan Pyxis Villagomez) 1 ea N/A .ATIVAN IV VILLAGOMEZ PRN PRN Reason: PYXIS VILLAGOMEZ Nicotine (Nicotine Patch 21 Mg/24 Hr*) 1 patch TRANSDERM DAILY [facility] Last Admin: 05/02/19 11:26 Dose: 1 patch Pharmacy Profile Note (Nicotine Patch Removal Note*) 1 note FOLLOW UP 2099 [facility] Vital Signs: Temp Pulse Resp BP Pulse Ox 98.2 F 51 16 129/78 97 05/01/19 22:26 05/01/19 22:26 05/01/19 22:26 05/01/19 22:26 05/01/19 22:26 Oxygen Devices in Use Now: None Appearance: Mr. Regalado is a middle aged white male who is sitting in chair with LE at floor. He is pleasant, cooperative, but inappropriate and confused at times, although oriented x3. He is in no acute distress. Eyes: No Scleral Icterus, PERRLA Ears/Nose/Mouth/Throat: NL Teeth, Lips, Gums, Clear Oropharnyx, Mucous Membranes Moist Neck: NL Appearance and Movements; NL JVP, Trachea Midline Respiratory: Symmetrical Chest Expansion and Respiratory Effort, - - L lung with course crackles Cardiovascular: NL Sounds; No Murmurs; No JVD, RRR, No Edema Abdominal: NL Sounds; No Tenderness; No Distention, No Hepatosplenomegaly Extremities: No Edema, No Clubbing, Cyanosis Neurological: Alert and Oriented x 3 Result Diagrams: 05/02/19 06:17 04/30/19 05:31 Microbiology and Other Data: Microbiology 04/26/19 20:25 CSF Gram Stain (Tube 3) - Preliminary Cerebral Spinal Fluid 04/26/19 19:15 Nasal Screen MRSA (PCR) - Final Nasal Mrsa Not Detected Diagnostic Imaging: CT brain--No acute intra-cranial pathology; CXR-wnl EKG Data: NSR Assess/Plan/Problems-Billing Assessment: 58 yo male with PMHx significant for newly diagnosed Parkinson's disease, tobacco abuse presents with cough, AMS, and was found to have H. influenzae pneumonia. - Patient Problems (1) Sepsis Comment: -met sepsis criteria at admission with tachycardia, tachypnea, leukocytosis, hypotension -sputum positive for H. influenzae; likely source pna -BC NGTD -CSF NGTD without evidence of meningitis -d/c cefepime (completed 4 days) and start ceftriaxone (day 2) -sepsis resolved (2) Haemophilus influenzae pneumonia Comment: -with associated sepsis (resolved), encephalopathy -leukocytosis resolved -CRP improved from 136 to 55 -sputum positive for H. influenzae -urine negative for S. pneumo, Legionella -d/c cefepime (lowers seizure threshold) in favor of ceftriaxone (3) Encephalopathy Comment: -many contributing etiologies, including toxic (medications, ammonia), metabolic (pneumonia) -continue pna treatment with ceftriaxone -was recently on lactulose; ammonia now WNL -continue to hold home sinemet -neurology following; thank you for recommendations -also h/o parkinson's dementia x1 appx 1 year, therefore may be back to baseline ; plans to follow outpatient with Maurice Cruz -patient appears improved, although very confused at times, which I believe is his baseline (4) Acute respiratory failure Comment: -requiring intubation from 03/26 - 04/29 -no longer requiring supplemental oxygen (5) Parkinsons disease Comment: -follows with Dr. Qiu -also h/o parkinson's dementia x appx 1 year; may be at baseline; plans to follow outpatient with Maurice Cruz -on outpatient Carbidopa-Levodopa 25-100 mg, 1/2 pill three times a day, which was not continued at admission, due to AMS -continue to hold Sinemet -neurology following; thank you for recommendations (6) Seizure disorder Comment: -apparent seizure disorder at admission -EEG without epileptiform changes -neurology following; continue recommended Keppra; will transition to PO (7) Tobacco abuse Comment: -offered patch, but patient declined -on MAR daily prn (8) DVT prophylaxis Comment: -Lovenox (9) Full code status Status and Disposition: Inpatient. Discharge when stable.
--- NOTE | 2019-05-02 18:57 | EEG ---
ELECTROENCEPHALOGRAM: DATE OF STUDY: 05/02/19 REFERRING PROVIDER: COLE Covarrubias LOCATION: He is an inpatient. He is in room 417. CLINICAL PROBLEM: The patient presented with seizures and coma and was intubated. He was subsequently extubated and is now ambulatory. He has a recent evaluation for parkinsonism and cognitive impairment. CURRENT MEDICATIONS: Include: 1. Haloperidol p.r.n. 2. Rocephin. 3. Keppra. 4. Pepcid. REPORT: This 19-channel EEG is remarkable for background rhythms consisting of a reasonably well-formed alpha rhythm in the occipital derivations at about 9 cycles per second on the right and about 8 to 8-1/2 cycles per second on the left. Low voltage beta rhythms are seen bifrontally. The patient is awake and talking. Not infrequent left anterior temporal phase reversing spikes are noted. These are a bit more prominent when the patient gets drowsy. Activation procedures are not attempted. There are no clinical events. The patient does not fall into stage 2 sleep. The patient is asked if he knows what year it is and at first he says 2011 and then 2012 and ultimately 2019. CLINICAL IMPRESSION: Abnormal EEG due to epileptiform discharges not infrequently from the left anterior temporal region compatible with a focal onset epilepsy. There are no clinical events or ictal events during this recording. [id number]/[facility] #: [id number] [facility]
[2019-05-02] MEDS: Melatonin 3 MG TAB PO PRN (19:51)
[2019-05-02] MEDS: Acetaminophen ADULT LIQ* 650 MG/20.3 ML UDC PO PRN (19:52)
[2019-05-02] MEDS: Enoxaparin(*) 40 MG/0.4 ML SYR SUBCUT SCH (21:56)
[2019-05-02] MEDS: Nicotine Patch Removal NOTE FOLLOW UP SCH (21:57)
[2019-05-02] MEDS: NS 0.9% 1000 ML** 1,000 ML IV SCH (22:14)
[2019-05-03] MEDS: Docusate CAP* 100 MG PO SCH ×2 (08:45→20:14)
[2019-05-03] MEDS: levETIRAcetam TAB* 500 MG PO SCH ×2 (08:45→20:14)
[2019-05-03] MEDS: Nicotine PATCH 21 MG/24 HR* PATCH TRANSDERM SCH (08:48)
[2019-05-03] MEDS: Famotidine SUSP ORALSYR 8 MG/ML G TUBE SCH (08:48)
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
[2019-05-03] MEDS: cefTRIAXone(*) 1 GM in NS 0.9% 50 ML* 50 ML IVPB SCH (16:30)
[2019-05-03] MEDS ORDERED: Magnesium Hydroxide LIQ* 30 ML UDC PO PRN (19:01)
[2019-05-03] MEDS: Nicotine Patch Removal NOTE FOLLOW UP SCH (20:14)
[2019-05-03] MEDS: Enoxaparin(*) 40 MG/0.4 ML SYR SUBCUT SCH (20:14)
[2019-05-03] MEDS: Melatonin 3 MG TAB PO PRN (20:15)
[2019-05-04] MEDS: Docusate CAP* 100 MG PO SCH ×2 (09:21→22:18)
[2019-05-04] MEDS: levETIRAcetam TAB* 500 MG PO SCH ×2 (09:21→22:19)
[2019-05-04] MEDS: Famotidine SUSP ORALSYR 8 MG/ML PO SCH (09:22)
[2019-05-04] MEDS: Nicotine PATCH 21 MG/24 HR* PATCH TRANSDERM SCH (09:22)
--- NOTE | 2019-05-04 10:13 | PN ---
Subjective Date of Service: 05/04/19 Interval History: Patient seen and examined at bedside Continues with 1:1 safety monitor States he slept well and liked sleeping in this morning Denies CARPIO, CP, SOB or other complaint Family History: Unchanged from Admission Social History: Unchanged from Admission Past Medical History: Unchanged from Admission Objective Active Medications: Acetaminophen (Tylenol Adult Liq*) 650 mg PO Q4H PRN PRN Reason: MILD PAIN or TEMP > 100.4 Last Admin: 05/02/19 19:52 Dose: 650 mg Bisacodyl (Dulcolax Supp*) 10 mg [place] DAILY [facility] Last Admin: 05/04/19 09:21 Dose: Not Given Docusate Sodium (Colace Cap*) 100 mg PO BID [facility] Last Admin: 05/04/19 09:21 Dose: 100 mg Enoxaparin Sodium (Lovenox(*)) 40 mg SUBCUT Q24H [facility] Last Admin: 05/03/19 20:14 Dose: 40 mg Famotidine (Pepcid Susp 8mg/Ml) 20 mg PO DAILY [facility] Last Admin: 05/04/19 09:22 Dose: 20 mg Ceftriaxone Sodium 1 gm/ (Sodium Chloride) 50 mls @ 100 mls/hr IVPB Q24H [facility] Last Admin: 05/03/19 16:30 Dose: 100 mls/hr Levetiracetam (Keppra Tab*) 750 mg PO BID [facility] Last Admin: 05/04/19 09:21 Dose: 750 mg Magnesium Hydroxide (Milk Of Magnesia Liq*) 30 ml PO Q4H PRN PRN Reason: CONSTIPATION Last Admin: 05/03/19 20:15 Dose: 30 ml Melatonin (Melatonin) 3 mg PO BEDTIME PRN PRN Reason: INSOMNIA Last Admin: 05/03/19 20:15 Dose: 3 mg Miscellaneous (Ativan Pyxis Villagomez) 1 ea N/A .ATIVAN IV VILLAGOMEZ PRN PRN Reason: PYXIS VILLAGOMEZ Nicotine (Nicotine Patch 21 Mg/24 Hr*) 1 patch TRANSDERM DAILY [facility] Last Admin: 05/04/19 09:22 Dose: Not Given Pharmacy Profile Note (Nicotine Patch Removal Note*) 1 note FOLLOW UP 2100 [facility] Last Admin: 05/03/19 20:14 Dose: Not Given Vital Signs - 8 hr 02/29/20 02/29/20 02:41 07:55 Temperature 97.7 F 98.2 F Pulse Rate 43 41 Respiratory 16 18 Rate Blood Pressure 149/74 128/57 (mmHg) O2 Sat by Pulse 96 95 Oximetry Oxygen Devices in Use Now: None Appearance: 58 yo male, lying in bed, NAD, pleasant, confused Eyes: No Scleral Icterus, PERRLA Ears/Nose/Mouth/Throat: Clear Oropharnyx, Mucous Membranes Moist Neck: NL Appearance and Movements; NL JVP Respiratory: Symmetrical Chest Expansion and Respiratory Effort, - - faint crackles in base of left lung Cardiovascular: NL Sounds; No Murmurs; No JVD, RRR, No Edema Abdominal: NL Sounds; No Tenderness; No Distention Extremities: No Clubbing, Cyanosis Neurological: NL Muscle Strength and Tone, - - alert to self, knows he is in a hospital, year 2017 then corrects to 2019 Nutrition: Taking PO's Result Diagrams: 05/02/19 06:17 04/30/19 05:31 Microbiology and Other Data: Microbiology 04/26/19 20:25 CSF Gram Stain (Tube 3) - Preliminary Cerebral Spinal Fluid 04/26/19 19:15 Nasal Screen MRSA (PCR) - Final Nasal Mrsa Not Detected Diagnostic Imaging: CT brain--No acute intra-cranial pathology; CXR-wnl EKG Data: NSR Assess/Plan/Problems-Billing Assessment: 58 yo male with PMHx significant for newly diagnosed Parkinson's disease, tobacco abuse presents with cough, AMS, and was found to have H. influenzae pneumonia. - Patient Problems (1) Sepsis Comment: -met sepsis criteria at admission with tachycardia, tachypnea, leukocytosis, hypotension -sputum positive for H. influenzae; likely source pna -BC NGTD -CSF NGTD without evidence of meningitis -d/c cefepime (completed 4 days) and start ceftriaxone (day 4) -sepsis resolved (2) Haemophilus influenzae pneumonia Comment: -with associated sepsis (resolved), encephalopathy -leukocytosis resolved -CRP improved from 136 to 55 -sputum positive for H. influenzae -urine negative for S. pneumo, Legionella -d/c cefepime (lowers seizure threshold) in favor of ceftriaxone (3) Encephalopathy Code(s): G93.40 - ENCEPHALOPATHY, UNSPECIFIED Comment: -many contributing etiologies, including toxic (medications, ammonia), metabolic (pneumonia) -continue pna treatment with ceftriaxone -was recently on lactulose; ammonia now WNL -continue to hold home sinemet -neurology following; thank you for recommendations -also h/o parkinson's dementia x1 appx 1 year, therefore may be back to baseline ; plans to follow outpatient with Maurice Cruz -patient appears improved, although very confused at times, which I believe is his baseline (4) Acute respiratory failure Code(s): J96.00 - ACUTE RESPIRATORY FAILURE, UNSP W HYPOXIA OR HYPERCAPNIA Comment: -requiring intubation from 03/26 - 04/29 -no longer requiring supplemental oxygen (5) Parkinsons disease Code(s): G20 - PARKINSON'S DISEASE Comment: -follows with Dr. Qiu -also h/o Parkinson's dementia x appx 1 year; may be at baseline; plans to follow outpatient with Maurice Cruz -on outpatient Carbidopa-Levodopa 25-100 mg, 1/2 pill three times a day, which was not continued at admission, due to AMS -unsure if patient was regularly taking Sinemet -continue to hold Sinemet -neurology following; thank you for recommendations (6) Seizure disorder Code(s): G40.909 - EPILEPSY, UNSP, NOT INTRACTABLE, WITHOUT STATUS EPILEPTICUS Comment: -apparent seizure disorder at admission (sister thinks may have been present for a few years) -EEG on 05/02 was abnormal due to epileptiform discharges that were compatible with focal onset epilepsy -neurology following; continue recommended Keppra at increased dose (7) Nicotine dependence Code(s): F17.200 - NICOTINE DEPENDENCE, UNSPECIFIED, UNCOMPLICATED Comment: Continue to offer nicotine patch (8) DVT prophylaxis Code(s): Z29.9 - ENCOUNTER FOR PROPHYLACTIC MEASURES, UNSPECIFIED Comment: Lovenox (9) Full code status Code(s): Z78.9 - OTHER SPECIFIED HEALTH STATUS Status and Disposition: Inpatient. Discharge when stable. Looking into placement options to ensure patient safety. Attending: Den Judge
[2019-05-04] MEDS: cefTRIAXone(*) 1 GM in NS 0.9% 50 ML* 50 ML IVPB SCH (15:36)
[2019-05-04] MEDS: Enoxaparin(*) 40 MG/0.4 ML SYR SUBCUT SCH (22:20)
[2019-05-04] MEDS: Nicotine Patch Removal NOTE FOLLOW UP SCH (22:21)
[2019-05-05] MEDS: levETIRAcetam TAB* 500 MG PO SCH ×2 (07:56→22:03)
[2019-05-05] MEDS: Nicotine PATCH 21 MG/24 HR* PATCH TRANSDERM SCH (07:56)
[2019-05-05] MEDS: Famotidine SUSP ORALSYR 8 MG/ML PO SCH (07:56)
[2019-05-05] MEDS: Docusate CAP* 100 MG PO SCH ×2 (07:56→22:04)
[2019-05-05 09:59] LABS: ABS Basophils 0.1 10^3/ul (0-0.2); ABS Eosinophils 0.5 10^3/ul (0-0.6); ABS Lymphocytes 2.4 10^3/ul (1.0-4.8); ABS Monocytes 0.8 10^3/ul (0-0.8); ABS Neutrophils 4.6 10^3/ul (1.5-7.7); Eosinophil % 5.9 %; Hematocrit 35 % (42-52); Hemoglobin 11.8 g/dL (14.0-18.0); Lymphocyte % 28.4 %; Mean Corpuscular HGB Conc 34 g/dL (31-36); Mean Corpuscular Hemoglobin 32 pg (27-31); Mean Corpuscular Volume 94 fL (80-94); Mean Platelet Volume 7.7 fL (7.4-10.4); Platelet Count 297 10^3/uL (150-450); Red Blood Count 3.72 10^6 /uL (4.18-5.48); Red Cell Distribution Width 14 % (10-15); White Blood Count 8.5 10^3/uL (3.5-10.8)
[2019-05-05 10:16] LABS: BUN/Creatinine Ratio 19.5 (8-20); Calcium 8.6 mg/dL (8.6-10.3); EGFR African American 125.6 (>60); EGFR Non-African American 103.8 (>60)
--- NOTE | 2019-05-05 14:35 | PN ---
Subjective Date of Service: 05/05/19 Interval History: Patient seen today, asleep easily awaken. He reports no complains. No events overnight Past Medical History: Unchanged from Admission Objective Active Medications: Acetaminophen (Tylenol Adult Liq*) 650 mg PO Q4H PRN PRN Reason: MILD PAIN or TEMP > 100.4 Last Admin: 05/02/19 19:52 Dose: 650 mg Bisacodyl (Dulcolax Supp*) 10 mg [place] DAILY [facility] Last Admin: 05/05/19 07:15 Dose: Not Given Docusate Sodium (Colace Cap*) 100 mg PO BID [facility] Last Admin: 05/05/19 07:56 Dose: 100 mg Enoxaparin Sodium (Lovenox(*)) 40 mg SUBCUT Q24H [facility] Last Admin: 05/04/19 22:20 Dose: 40 mg Famotidine (Pepcid Susp 8mg/Ml) 20 mg PO DAILY [facility] Last Admin: 05/05/19 07:56 Dose: 20 mg Ceftriaxone Sodium 1 gm/ (Sodium Chloride) 50 mls @ 100 mls/hr IVPB Q24H [facility] Last Admin: 05/04/19 15:36 Dose: 100 mls/hr Levetiracetam (Keppra Tab*) 750 mg PO BID [facility] Last Admin: 05/05/19 07:56 Dose: 750 mg Magnesium Hydroxide (Milk Of Magnesia Liq*) 30 ml PO Q4H PRN PRN Reason: CONSTIPATION Last Admin: 05/03/19 20:15 Dose: 30 ml Melatonin (Melatonin) 3 mg PO BEDTIME PRN PRN Reason: INSOMNIA Last Admin: 05/03/19 20:15 Dose: 3 mg Miscellaneous (Ativan Pyxis Villagomez) 1 ea N/A .ATIVAN IV VILLAGOMEZ PRN PRN Reason: PYXIS VILLAGOMEZ Nicotine (Nicotine Patch 21 Mg/24 Hr*) 1 patch TRANSDERM DAILY [facility] Last Admin: 05/05/19 07:56 Dose: Not Given Pharmacy Profile Note (Nicotine Patch Removal Note*) 1 note FOLLOW UP 2099 [facility] Last Admin: 05/04/19 22:21 Dose: Not Given Vital Signs - 8 hr 05/05/19 05/05/19 05/05/19 08:00 09:29 12:00 Temperature 97.8 F 98.3 F Pulse Rate 42 45 Respiratory 20 20 16 Rate Blood Pressure 143/70 120/69 (mmHg) O2 Sat by Pulse 95 Oximetry Oxygen Devices in Use Now: None Appearance: awake, alert no distress Eyes: No Scleral Icterus, - Ears/Nose/Mouth/Throat: NL Teeth, Lips, Gums, Mucous Membranes Moist Neck: NL Appearance and Movements; NL JVP, Trachea Midline Respiratory: Symmetrical Chest Expansion and Respiratory Effort, Clear to Auscultation Cardiovascular: NL Sounds; No Murmurs; No JVD, No Edema Abdominal: NL Sounds; No Tenderness; No Distention Extremities: No Edema Skin: No Rash or Ulcers Neurological: Alert and Oriented x 3 Result Diagrams: 05/05/19 09:48 05/05/19 09:48 Microbiology and Other Data: Microbiology 04/26/19 20:25 CSF Gram Stain (Tube 3) - Preliminary Cerebral Spinal Fluid 04/26/19 19:15 Nasal Screen MRSA (PCR) - Final Nasal Mrsa Not Detected Diagnostic Imaging: CT brain--No acute intra-cranial pathology; CXR-wnl EKG Data: NSR Assess/Plan/Problems-Billing Assessment: 58 yo male with PMHx significant for newly diagnosed Parkinson's disease, tobacco abuse presents with cough, AMS, and was found to have H. influenzae pneumonia. - Patient Problems (1) Encephalopathy Current Visit: Yes Status: Acute Code(s): G93.40 - ENCEPHALOPATHY, UNSPECIFIED SNOMED Code(s): 49695772 Comment: Etiology unclear but appears to be most likely due to infectious process in the setting of clinical pneumonia and new onset seizure diagnosed on EEG 05/02/19 - Although he did not have radiological evidence of pneumonia (based on his CXR and Chest CT), his clinical presentation and sputm culture was consistent with haemophilus influenza. Continue rocephin 1 gm IV daily Day # 10 total antibiotics course. - MRI brain did not show acute pathology - CSF was negative for meningitis (2) Haemophilus influenzae pneumonia Current Visit: Yes Status: Acute Comment: - associated sepsis (resolved), and encephalopathy - leukocytosis resolved - CRP improved from 136 to 55 - urine negative for S. pneumo, Legionella - ceftriaxone day # 10 (total antibiotic course so far) (3) Hypokalemia Current Visit: Yes Status: Resolved Code(s): E87.6 - HYPOKALEMIA SNOMED Code(s): 84841154 Comment: - resolved (4) Nicotine dependence Current Visit: Yes Status: Acute Code(s): F17.200 - NICOTINE DEPENDENCE, UNSPECIFIED, UNCOMPLICATED SNOMED Code(s): 79626825 Comment: - On nicotine replacement therapy (5) Parkinsons disease Current Visit: Yes Status: Acute Code(s): G20 - PARKINSON'S DISEASE SNOMED Code(s): 27729407 Comment: - He follows with Dr. Qiu - Also h/o Parkinson's dementia x appx 1 year; plans to follow outpatient with Maurice Cruz - He was on outpatient Carbidopa-Levodopa 25-100 mg, 1/2 pill three times a day , which was not continued at admission, due to AMS. I did not appreciate significant tremors on evaluation today. Will reassess daily. continue to hold sinemet (6) Seizure Current Visit: Yes Status: Acute Code(s): R56.9 - UNSPECIFIED CONVULSIONS SNOMED Code(s): 99053605 Comment: - EEG 05/02/19 did reveal epileptic acitivy in his left temporal lobes - Will continue Keppra 750 mg bid - appreciate input from Dr. Fuentes (7) Acute respiratory failure Current Visit: Yes Status: Resolved Code(s): J96.00 - ACUTE RESPIRATORY FAILURE, UNSP W HYPOXIA OR HYPERCAPNIA SNOMED Code(s): 01218477 Comment: - s/p mechanical intubation from 03/26 - 04/29 (8) DVT prophylaxis Current Visit: Yes Status: Acute Code(s): Z29.9 - ENCOUNTER FOR PROPHYLACTIC MEASURES, UNSPECIFIED SNOMED Code(s): 417141683 Comment: Lovenox Status and Disposition: Inpatient. Discharge when stable. Looking into placement options to ensure patient safety.
[2019-05-05] MEDS: cefTRIAXone(*) 1 GM in NS 0.9% 50 ML* 50 ML IVPB SCH (16:07)
[2019-05-05] MEDS: Melatonin 3 MG TAB PO PRN (22:04)
[2019-05-05] MEDS: Nicotine Patch Removal NOTE FOLLOW UP SCH (22:05)
[2019-05-05] MEDS: Enoxaparin(*) 40 MG/0.4 ML SYR SUBCUT SCH (22:05)
[2019-05-06] MEDS: levETIRAcetam TAB* 500 MG PO SCH ×2 (08:51→20:48)
[2019-05-06] MEDS: Docusate CAP* 100 MG PO SCH ×2 (08:51→20:48)
[2019-05-06] MEDS: Nicotine PATCH 21 MG/24 HR* PATCH TRANSDERM SCH (08:55)
[2019-05-06] MEDS: Famotidine SUSP ORALSYR 8 MG/ML PO SCH (08:55)
--- NOTE | 2019-05-06 12:36 | PN ---
Subjective Date of Service: 05/06/19 Interval History: Patient seen today, One sister in the room with him. His older sister was not present during my interview. The patient expressed he feels better and wanting to go home. there was some concerns from social media marketing manager and family that he is not safe to return to his housing situations and would like him placed. I did interview the patient yesterday as first time and again for the second time today. he is very pleasant but does have poor short term memory. He tends to forgot remote conversations. I did inform him that I would like to consult with psychiatry for capacity and decide on discharge home versus placement. Past Medical History: Unchanged from Admission Objective Active Medications: Acetaminophen (Tylenol Adult Liq*) 650 mg PO Q4H PRN PRN Reason: MILD PAIN or TEMP > 100.4 Last Admin: 05/02/19 19:52 Dose: 650 mg Bisacodyl (Dulcolax Supp*) 10 mg [place] DAILY [facility] Last Admin: 05/06/19 08:56 Dose: Not Given Docusate Sodium (Colace Cap*) 100 mg PO BID [facility] Last Admin: 05/06/19 08:51 Dose: 100 mg Enoxaparin Sodium (Lovenox(*)) 40 mg SUBCUT Q24H [facility] Last Admin: 05/05/19 22:05 Dose: 40 mg Famotidine (Pepcid Susp 8mg/Ml) 20 mg PO DAILY [facility] Last Admin: 05/06/19 08:55 Dose: 20 mg Ceftriaxone Sodium 1 gm/ (Sodium Chloride) 50 mls @ 100 mls/hr IVPB Q24H [facility] Last Admin: 05/05/19 16:07 Dose: 100 mls/hr Levetiracetam (Keppra Tab*) 750 mg PO BID [facility] Last Admin: 05/06/19 08:51 Dose: 750 mg Magnesium Hydroxide (Milk Of Magnesia Liq*) 30 ml PO Q4H PRN PRN Reason: CONSTIPATION Last Admin: 05/03/19 20:15 Dose: 30 ml Melatonin (Melatonin) 3 mg PO BEDTIME PRN PRN Reason: INSOMNIA Last Admin: 05/05/19 22:04 Dose: 3 mg Miscellaneous (Ativan Pyxis Bray) 1 ea N/A .ATIVAN IV BRAY PRN PRN Reason: PYXIS BRAY Nicotine (Nicotine Patch 21 Mg/24 Hr*) 1 patch TRANSDERM DAILY [facility] Last Admin: 05/06/19 08:55 Dose: 1 patch Pharmacy Profile Note (Nicotine Patch Removal Note*) 1 note FOLLOW UP 2100 [facility] Last Admin: 05/05/19 22:05 Dose: Not Given Vital Signs - 8 hr 05/06/19 05/06/19 05/06/19 07:55 08:00 11:18 Temperature 97.4 F 98.7 F Pulse Rate 47 49 Respiratory 20 20 18 Rate Blood Pressure 139/74 133/70 (mmHg) O2 Sat by Pulse 97 98 Oximetry Oxygen Devices in Use Now: None Appearance: awake. alert no distress Eyes: No Scleral Icterus, - - EOMI Ears/Nose/Mouth/Throat: NL Teeth, Lips, Gums, Mucous Membranes Moist Neck: NL Appearance and Movements; NL JVP, Trachea Midline Respiratory: Symmetrical Chest Expansion and Respiratory Effort, Clear to Auscultation Cardiovascular: NL Sounds; No Murmurs; No JVD, No Edema Abdominal: NL Sounds; No Tenderness; No Distention Neurological: NL Muscle Strength and Tone, - - oriented to person and place not to time Result Diagrams: 05/05/19 09:48 05/05/19 09:48 Microbiology and Other Data: Microbiology 04/26/19 20:25 CSF Gram Stain (Tube 3) - Preliminary Cerebral Spinal Fluid 04/26/19 19:15 Nasal Screen MRSA (PCR) - Final Nasal Mrsa Not Detected Diagnostic Imaging: CT brain--No acute intra-cranial pathology; CXR-wnl EKG Data: NSR Assess/Plan/Problems-Billing Assessment: 58 yo male with PMHx significant for newly diagnosed Parkinson's disease, tobacco abuse presents with cough, AMS, and was found to have H. influenzae pneumonia. - Patient Problems (1) Encephalopathy Current Visit: Yes Status: Acute Code(s): G93.40 - ENCEPHALOPATHY, UNSPECIFIED SNOMED Code(s): 99271898 Comment: - Etiology unclear but appears to be most likely due to infectious process in the setting of clinical pneumonia and new onset seizure diagnosed on EEG 05/02/19 - Although he did not have radiological evidence of pneumonia (based on his CXR and Chest CT), his clinical presentation and sputm culture was consistent with haemophilus influenza. Continue rocephin 1 gm IV daily Day # 11 total antibiotics course. Will switch to po once stable to complete 14 days - MRI brain did not show acute pathology - CSF was negative for meningitis - [facility] consulted for capacity to help coordinate placement (2) Haemophilus influenzae pneumonia Current Visit: Yes Status: Acute Comment: - associated sepsis (resolved), and encephalopathy - leukocytosis resolved - CRP improved from 136 to 55 - urine negative for S. pneumo, Legionella - ceftriaxone day # 11 (total antibiotic course so far). Will switch to po once stable to compelte 14 days course (3) Hypokalemia Current Visit: Yes Status: Resolved Code(s): E87.6 - HYPOKALEMIA SNOMED Code(s): 24565769 Comment: - resolved (4) Nicotine dependence Current Visit: Yes Status: Acute Code(s): F17.200 - NICOTINE DEPENDENCE, UNSPECIFIED, UNCOMPLICATED SNOMED Code(s): 60103216 Comment: - On nicotine replacement therapy (5) Parkinsons disease Current Visit: Yes Status: Acute Code(s): G20 - PARKINSON'S DISEASE SNOMED Code(s): 96989224 Comment: - He follows with Dr. Qiu - Also h/o Parkinson's dementia x appx 1 year; plans to follow outpatient with [facility] - He was on outpatient Carbidopa-Levodopa 25-100 mg, 1/2 pill three times a day , which was not continued at admission, due to AMS. I did not appreciate significant tremors on evaluation today. Will reassess daily. continue to hold sinemet until seen outpatient by his neurologist Dr. Qiu (6) Seizure Current Visit: Yes Status: Acute Code(s): R56.9 - UNSPECIFIED CONVULSIONS SNOMED Code(s): 17196911 Comment: - EEG 05/02/19 did reveal epileptic acitivy in his left temporal lobes - Will continue Keppra 750 mg bid - appreciate input from Dr. Fuentes (7) Acute respiratory failure Current Visit: Yes Status: Resolved Code(s): J96.00 - ACUTE RESPIRATORY FAILURE, UNSP W HYPOXIA OR HYPERCAPNIA SNOMED Code(s): 26410638 Comment: - s/p mechanical intubation from 03/26 - 04/29 (8) DVT prophylaxis Current Visit: Yes Status: Acute Code(s): Z29.9 - ENCOUNTER FOR PROPHYLACTIC MEASURES, UNSPECIFIED SNOMED Code(s): 722375599 Comment: Lovenox Status and Disposition: Inpatient. Discharge when stable. Looking into placement options to ensure patient safety. Pych consulted for capacity
[2019-05-06] MEDS: cefTRIAXone(*) 1 GM in NS 0.9% 50 ML* 50 ML IVPB SCH (16:56)
--- NOTE | 2019-05-06 17:15 | CONSULT ---
Consult Consult: Consult for Medical Decision Making Capacity S: Psychiatry is asked to evaluate capacity in this 58 y.o. single, white male a history of extensive hallucinogenic drug abuse and parkinson's disease admitted to the Hospitalist service with a seizure and subsequently diagnosed with pneumonia. The patient's siblings do not believe that he can live independently and he is essentially being evicted from his sister's basement apartment in the [facility] because of her concern over his lack of self-care. Attending Hospitalist Judson Olivarez believes that placement in an [facility] setting is medically indicated, however, the patient declined this, preferring to return home. On exam I immediately note that the patient is hirsute and slightly unkempt. He is very kind and cooperative with a somewhat vacant interpersonal style. 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 "Over 100 that I can remember." I then asked about drug use related to those concerts and he endorses using LSD and mushrooms at a majority of the performances. Mr. Regalado is not clear on the reason for his hospitalization, saying that he is here for "having an embolus" although this is not supported by his medical documentation. He later seems almost surprised to learn that he has pneumonia and a seizure disorder. When asked about the risks of going home he cannot reproduce any. "I'm not really paranoid about having a seizure. I probably wouldn't have another one for 30 years." He is oriented to most elements of person, place and time but misses the year (says it's 2011) and incorrectly states his age as 52. His short term memory is severely impaired. O: middle aged white male with long hair and menezes; dressed in a T-shirt with scrub bottoms and limited grooming; speech has slow rate with limited spontaneity; calm and cooperative; euthymic mood with mildly blunted affect; denies SI or HI; insight and judgment poor given insistence on going home without rehab; awake and alert; oriented to place and time but not situation. He scores a 24/30 on the MMSE, missing points for day, year, attention and recall A/P: Capacity: During our interaction, Mr. Regalado failed to demonstrate a reasonable understanding of his illness and the events leading to hospitalization. He could not articulate what future treatment course has been recommended by his inpatient providers and, although he could articulate a choice, he could not state any risks of refusing said treatment. In my judgment , he lacks the capacity to make an informed decision about refusing [facility] placement. Capacity is subject to change in these situations and psychiatry can be re-consulted in the event of any significant changes in the patient's presentation. I have discussed my opinion with the patient, Dr. Olivarez and -[place] staff.
[2019-05-06] MEDS: Nicotine Patch Removal NOTE FOLLOW UP SCH (20:48)
[2019-05-06] MEDS: Enoxaparin(*) 40 MG/0.4 ML SYR SUBCUT SCH (21:44)
[2019-05-07] MEDS: Nicotine PATCH 21 MG/24 HR* PATCH TRANSDERM SCH (10:00)
[2019-05-07] MEDS: levETIRAcetam TAB* 500 MG PO SCH ×2 (10:01→21:39)
[2019-05-07] MEDS: Docusate CAP* 100 MG PO SCH ×2 (10:01→21:40)
[2019-05-07] MEDS: Famotidine SUSP ORALSYR 8 MG/ML PO SCH (11:05)
[2019-05-07] MEDS: Polyethylene Glycol 3350* 17 GM PACKET PO SCH ×2 (11:05→21:46)
--- NOTE | 2019-05-07 16:04 | PN ---
Subjective Date of Service: 05/07/19 Interval History: HOSPITALIST PROGRESS NOTE Patient seen and examined at bedside. Care reviewed and d/w Goldie Stewart RN. He offers no complaints today. Family History: Unchanged from Admission Social History: Unchanged from Admission Past Medical History: Unchanged from Admission Objective Active Medications: Acetaminophen (Tylenol Adult Liq*) 650 mg PO Q4H PRN PRN Reason: MILD PAIN or TEMP > 100.4 Last Admin: 05/02/19 19:52 Dose: 650 mg Bisacodyl (Dulcolax Supp*) 10 mg [place] DAILY [facility] Last Admin: 05/07/19 10:03 Dose: Not Given Docusate Sodium (Colace Cap*) 100 mg PO BID [facility] Last Admin: 05/07/19 10:01 Dose: 100 mg Enoxaparin Sodium (Lovenox(*)) 40 mg SUBCUT Q24H [facility] Last Admin: 05/06/19 21:44 Dose: 40 mg Famotidine (Pepcid Susp 8mg/Ml) 20 mg PO DAILY [facility] Last Admin: 05/07/19 11:05 Dose: 20 mg Ceftriaxone Sodium 1 gm/ (Sodium Chloride) 50 mls @ 100 mls/hr IVPB Q24H [facility] Last Admin: 05/06/19 16:56 Dose: 100 mls/hr Levetiracetam (Keppra Tab*) 750 mg PO BID [facility] Last Admin: 05/07/19 10:01 Dose: 750 mg Magnesium Hydroxide (Milk Of Magnesia Liq*) 30 ml PO Q4H PRN PRN Reason: CONSTIPATION Last Admin: 05/03/19 20:15 Dose: 30 ml Melatonin (Melatonin) 3 mg PO BEDTIME PRN PRN Reason: INSOMNIA Last Admin: 05/05/19 22:04 Dose: 3 mg Miscellaneous (Ativan Pyxis Villagomez) 1 ea N/A .ATIVAN IV VILLAGOMEZ PRN PRN Reason: PYXIS VILLAGOMEZ Nicotine (Nicotine Patch 21 Mg/24 Hr*) 1 patch TRANSDERM DAILY [facility] Last Admin: 05/07/19 10:00 Dose: 1 patch Pharmacy Profile Note (Nicotine Patch Removal Note*) 1 note FOLLOW UP 2099 [facility] Last Admin: 05/06/19 20:48 Dose: 1 note Polyethylene Glycol/Electrolytes (Miralax (17 Gm Dose Justino)) 17 gm PO 0800,2099 [facility] Last Admin: 05/07/19 11:05 Dose: 17 gm Vital Signs - 8 hr 05/07/19 05/07/19 05/07/19 08:00 09:46 11:14 Temperature 98.6 F 97.8 F Pulse Rate 51 46 Respiratory 18 16 14 Rate Blood Pressure 151/78 150/73 (mmHg) O2 Sat by Pulse 99 99 Oximetry Oxygen Devices in Use Now: None Appearance: Pleasant middle aged gentleman, appears older than stated age, lying in bed in NAD Eyes: No Scleral Icterus Ears/Nose/Mouth/Throat: Mucous Membranes Moist Neck: Trachea Midline Respiratory: Symmetrical Chest Expansion and Respiratory Effort, Clear to Auscultation Cardiovascular: RRR - Normal S1 and S2 Neurological: - - AAOx2 (self and place), BLACK Result Diagrams: 05/05/19 09:48 05/05/19 09:48 Assess/Plan/Problems-Billing Assessment: Mr Regalado is a 58 yo M with PMH of cognitive impairment, recent diagnosis of probable Parkinson's disease, tobacco abuse presented after a seizure with cough , AMS, and was found to have H. influenzae pneumonia. - Patient Problems (1) Encephalopathy Comment: - Multifactorial in the setting of chronic cognitive impairment of unclear etiology, worsened by pneumonia and new onset seizure diagnosed on EEG . - Intubated on admission due to severe agitation requiring significant sedation. - MRI brain did not show acute pathology. - CSF was negative for meningitis - Psych consult appreciated - patient lacks capacity to refuse placement. 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 (2) Haemophilus influenzae pneumonia Comment: - Clinical diagnosis - CT chest showed atelectasis and sputum grew H. influenza. - CRP improved from 136 to 55 - urine negative for S. pneumo, Legionella - Continue Ceftriaxone #7. (3) Seizure Comment: - EEG 05/02/19 did reveal epileptic acitivy in his left temporal region. - Continue Keppra 750 mg BID. (4) Parkinsons disease Comment: - Seen by Dr. Qiu as outpatient. - With possible Parkinson's dementia - referred to [facility] Movement disorder. - Had been recentily started on Carbidopa-Levodopa as outpatient, discontinued on admission due to AMS. (5) DVT prophylaxis Comment: - Lovenox. (6) Full code status Status and Disposition: Inpatient. Family meeting today to discuss safe discharge plan.
[2019-05-07] MEDS: cefTRIAXone(*) 1 GM in NS 0.9% 50 ML* 50 ML IVPB SCH (17:13)
[2019-05-07] MEDS: Enoxaparin(*) 40 MG/0.4 ML SYR SUBCUT SCH (21:40)
[2019-05-07] MEDS: Nicotine Patch Removal NOTE FOLLOW UP SCH (22:08)
[2019-05-08] MEDS: levETIRAcetam TAB* 500 MG PO SCH ×2 (07:57→20:05)
[2019-05-08] MEDS: Polyethylene Glycol 3350* 17 GM PACKET PO SCH ×2 (07:57→21:53)
[2019-05-08] MEDS: Nicotine PATCH 21 MG/24 HR* PATCH TRANSDERM SCH (07:58)
[2019-05-08] MEDS: Docusate CAP* 100 MG PO SCH ×2 (07:58→20:05)
[2019-05-08] MEDS: Famotidine SUSP ORALSYR 8 MG/ML PO SCH (07:58)
--- NOTE | 2019-05-08 15:33 | PN ---
Subjective Date of Service: 05/08/19 Interval History: HOSPITALIST PROGRESS NOTE Patient seen and examined at bedside. Care reviewed and d/w Kamilah Vazquez RN. He offers no complaints today. Family History: Unchanged from Admission Social History: Unchanged from Admission Past Medical History: Unchanged from Admission Objective Active Medications: Acetaminophen (Tylenol Adult Liq*) 650 mg PO Q4H PRN PRN Reason: MILD PAIN or TEMP > 100.4 Last Admin: 05/02/19 19:52 Dose: 650 mg Bisacodyl (Dulcolax Supp*) 10 mg [place] DAILY PRN PRN Reason: CONSTIPATION Docusate Sodium (Colace Cap*) 100 mg PO BID [facility] Last Admin: 05/08/19 07:58 Dose: 100 mg Enoxaparin Sodium (Lovenox(*)) 40 mg SUBCUT Q24H [facility] Last Admin: 05/07/19 21:40 Dose: 40 mg Famotidine (Pepcid Susp 8mg/Ml) 20 mg PO DAILY [facility] Last Admin: 05/08/19 07:58 Dose: 20 mg Ceftriaxone Sodium 1 gm/ (Sodium Chloride) 50 mls @ 100 mls/hr IVPB Q24H [facility] Last Admin: 05/07/19 17:13 Dose: 100 mls/hr Levetiracetam (Keppra Tab*) 750 mg PO BID [facility] Last Admin: 05/08/19 07:57 Dose: 750 mg Magnesium Hydroxide (Milk Of Magnesia Liq*) 30 ml PO Q4H PRN PRN Reason: CONSTIPATION Last Admin: 05/03/19 20:15 Dose: 30 ml Melatonin (Melatonin) 3 mg PO BEDTIME PRN PRN Reason: INSOMNIA Last Admin: 05/05/19 22:04 Dose: 3 mg Miscellaneous (Ativan Pyxis Villagomez) 1 ea N/A .ATIVAN IV VILLAGOMEZ PRN PRN Reason: PYXIS VILLAGOMEZ Nicotine (Nicotine Patch 21 Mg/24 Hr*) 1 patch TRANSDERM DAILY [facility] Last Admin: 05/08/19 07:58 Dose: Not Given Pharmacy Profile Note (Nicotine Patch Removal Note*) 1 note FOLLOW UP 2099 [facility] Last Admin: 05/07/19 22:08 Dose: 1 note Polyethylene Glycol/Electrolytes (Miralax (17 Gm Dose Justino)) 17 gm PO 0800,2100 [facility] Last Admin: 05/08/19 07:57 Dose: 17 gm Vital Signs - 8 hr 05/08/19 05/08/19 05/08/19 07:37 08:00 11:04 Temperature 98.0 F 96.9 F Pulse Rate 50 51 Respiratory 20 18 16 Rate Blood Pressure 130/67 118/66 (mmHg) O2 Sat by Pulse 97 100 Oximetry Oxygen Devices in Use Now: None Appearance: Pleasant gentleman sitting up in bed in NAD Eyes: No Scleral Icterus Ears/Nose/Mouth/Throat: Mucous Membranes Moist Neck: Trachea Midline Respiratory: Symmetrical Chest Expansion and Respiratory Effort, Clear to Auscultation Cardiovascular: RRR - Normal S1 and S2 Neurological: - - AAOx2 (self), BLACK Result Diagrams: 05/05/19 09:48 05/05/19 09:48 Assess/Plan/Problems-Billing Assessment: Mr Regalado is a 58 yo M with PMH of cognitive impairment, recent diagnosis of probable Parkinson's disease, tobacco abuse presented after a seizure with cough , AMS, and was found to have H. influenzae pneumonia. - Patient Problems (1) Encephalopathy Comment: - Multifactorial in the setting of chronic cognitive impairment of unclear etiology, worsened by pneumonia and new onset seizure diagnosed on EEG . - Intubated on admission due to severe agitation requiring significant sedation. - MRI brain did not show acute pathology. - CSF was negative for meningitis - Psych consult appreciated - patient lacks capacity to refuse placement. 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 (2) Haemophilus influenzae pneumonia Comment: - Clinical diagnosis - CT chest showed atelectasis and sputum grew H. influenza. - CRP improved from 136 to 55 - urine negative for S. pneumo, Legionella - Completed Ceftriaxone. (3) Seizure Comment: - EEG 05/02/19 did reveal epileptic acitivy in his left temporal region. - Continue Keppra 750 mg BID. (4) Parkinsons disease Comment: - Seen by Dr. Qiu as outpatient. - With possible Parkinson's dementia - referred to [facility] Movement disorder. - Had been recentily started on Carbidopa-Levodopa as outpatient, discontinued on admission due to AMS. (5) DVT prophylaxis Comment: - Lovenox. (6) Full code status Status and Disposition: Inpatient. [facility] - [facility].
[2019-05-08] MEDS: cefTRIAXone(*) 1 GM in NS 0.9% 50 ML* 50 ML IVPB SCH (17:10)
[2019-05-08] MEDS ORDERED: Cefdinir cap* 300 MG CAP PO ONE (17:41)
[2019-05-08] MEDS: Enoxaparin(*) 40 MG/0.4 ML SYR SUBCUT SCH (20:07)
[2019-05-08] MEDS: Nicotine Patch Removal NOTE FOLLOW UP SCH (21:52)
[2019-05-09] MEDS: Nicotine PATCH 21 MG/24 HR* PATCH TRANSDERM SCH (07:33)
[2019-05-09] MEDS: Docusate CAP* 100 MG PO SCH ×2 (07:39→20:17)
[2019-05-09] MEDS: levETIRAcetam TAB* 500 MG PO SCH ×2 (07:39→20:17)
[2019-05-09] MEDS: Polyethylene Glycol 3350* 17 GM PACKET PO SCH ×2 (07:39→20:17)
[2019-05-09] MEDS: Famotidine SUSP ORALSYR 8 MG/ML PO SCH (07:52)
[2019-05-09] MEDS: Enoxaparin(*) 40 MG/0.4 ML SYR SUBCUT SCH (20:19)
[2019-05-09] MEDS: Nicotine Patch Removal NOTE FOLLOW UP SCH (20:22)
[2019-05-10] MEDS: Docusate CAP* 100 MG PO SCH ×2 (09:50→20:06)
[2019-05-10] MEDS: Polyethylene Glycol 3350* 17 GM PACKET PO SCH ×2 (09:50→20:08)
[2019-05-10] MEDS: Famotidine SUSP ORALSYR 8 MG/ML PO SCH (09:51)
[2019-05-10] MEDS: Nicotine PATCH 21 MG/24 HR* PATCH TRANSDERM SCH (09:51)
[2019-05-10] MEDS: levETIRAcetam TAB* 500 MG PO SCH ×2 (09:58→20:06)
[2019-05-10] MEDS: Enoxaparin(*) 40 MG/0.4 ML SYR SUBCUT SCH (20:08)
[2019-05-10] MEDS: Nicotine Patch Removal NOTE FOLLOW UP SCH (20:08)
[2019-05-11] MEDS: levETIRAcetam TAB* 500 MG PO SCH ×2 (09:26→20:03)
[2019-05-11] MEDS: Famotidine SUSP ORALSYR 8 MG/ML PO SCH (09:26)
[2019-05-11] MEDS: Docusate CAP* 100 MG PO SCH ×2 (09:32→20:03)
[2019-05-11] MEDS: Polyethylene Glycol 3350* 17 GM PACKET PO SCH ×2 (09:32→20:03)
[2019-05-11] MEDS: Nicotine PATCH 21 MG/24 HR* PATCH TRANSDERM SCH (09:32)
[2019-05-11] MEDS: Enoxaparin(*) 40 MG/0.4 ML SYR SUBCUT SCH (20:04)
[2019-05-11] MEDS: Nicotine Patch Removal NOTE FOLLOW UP SCH (21:44)
[2019-05-11] MEDS: Melatonin 3 MG TAB PO PRN (22:26)
[2019-05-12 06:20] LABS: ABS Basophils 0.1 10^3/ul (0-0.2); ABS Eosinophils 0.6 10^3/ul (0-0.6); ABS Lymphocytes 2.6 10^3/ul (1.0-4.8); ABS Monocytes 1.1 10^3/ul (0-0.8); Eosinophil % 5.9 %; Hematocrit 35 % (42-52); Lymphocyte % 27.6 %; Mean Corpuscular HGB Conc 34 g/dL (31-36); Mean Corpuscular Hemoglobin 33 pg (27-31); Mean Corpuscular Volume 95 fL (80-94); Mean Platelet Volume 7.4 fL (7.4-10.4); Nucleated Red Blood Cells % 0.1; Platelet Count 447 10^3/uL (150-450); Red Blood Count 3.68 10^6 /uL (4.18-5.48); Red Cell Distribution Width 15 % (10-15); White Blood Count 9.3 10^3/uL (3.5-10.8)
[2019-05-12 06:39] LABS: BUN/Creatinine Ratio 22.2 (8-20); Calcium 8.7 mg/dL (8.6-10.3); EGFR African American 118.4 (>60); EGFR Non-African American 97.9 (>60)
[2019-05-12] MEDS: levETIRAcetam TAB* 500 MG PO SCH ×2 (09:27→20:08)
[2019-05-12] MEDS: Docusate CAP* 100 MG PO SCH ×2 (09:27→20:09)
[2019-05-12] MEDS: Famotidine SUSP ORALSYR 8 MG/ML PO SCH (09:28)
[2019-05-12] MEDS: Polyethylene Glycol 3350* 17 GM PACKET PO SCH ×2 (09:36→20:08)
[2019-05-12] MEDS: Nicotine PATCH 21 MG/24 HR* PATCH TRANSDERM SCH (09:36)
[2019-05-12] MEDS: Enoxaparin(*) 40 MG/0.4 ML SYR SUBCUT SCH (20:08)
[2019-05-12] MEDS: Nicotine Patch Removal NOTE FOLLOW UP SCH (20:09)
[2019-05-13] MEDS: levETIRAcetam TAB* 500 MG PO SCH ×2 (09:57→19:52)
[2019-05-13] MEDS: Famotidine SUSP ORALSYR 8 MG/ML PO SCH (09:57)
[2019-05-13] MEDS: Polyethylene Glycol 3350* 17 GM PACKET PO SCH ×2 (09:57→19:57)
[2019-05-13] MEDS: Docusate CAP* 100 MG PO SCH ×2 (09:57→19:52)
[2019-05-13] MEDS: Nicotine PATCH 21 MG/24 HR* PATCH TRANSDERM SCH (09:57)
[2019-05-13] MEDS: Nicotine Patch Removal NOTE FOLLOW UP SCH (19:57)
[2019-05-13] MEDS: Enoxaparin(*) 40 MG/0.4 ML SYR SUBCUT SCH (20:04)
[2019-05-13] MEDS: Melatonin 3 MG TAB PO PRN (23:10)
[2019-05-14] MEDS: Nicotine PATCH 21 MG/24 HR* PATCH TRANSDERM SCH (09:12)
[2019-05-14] MEDS: Polyethylene Glycol 3350* 17 GM PACKET PO SCH ×2 (09:13→21:22)
[2019-05-14] MEDS: Docusate CAP* 100 MG PO SCH ×2 (09:14→21:19)
[2019-05-14] MEDS: levETIRAcetam TAB* 500 MG PO SCH ×2 (09:14→21:19)
[2019-05-14] MEDS: Famotidine SUSP ORALSYR 8 MG/ML PO SCH (09:15)
[2019-05-14] MEDS: Enoxaparin(*) 40 MG/0.4 ML SYR SUBCUT SCH (21:19)
[2019-05-14] MEDS: Melatonin 3 MG TAB PO PRN (21:19)
[2019-05-14] MEDS: Nicotine Patch Removal NOTE FOLLOW UP SCH (21:22)
[2019-05-15] MEDS: Nicotine PATCH 21 MG/24 HR* PATCH TRANSDERM SCH (09:27)
[2019-05-15] MEDS: Polyethylene Glycol 3350* 17 GM PACKET PO SCH ×2 (09:30→19:51)
[2019-05-15] MEDS: Docusate CAP* 100 MG PO SCH ×2 (09:30→19:56)
[2019-05-15] MEDS: Famotidine SUSP ORALSYR 8 MG/ML PO SCH (09:31)
[2019-05-15] MEDS: levETIRAcetam TAB* 500 MG PO SCH ×2 (09:31→19:56)
[2019-05-15] MEDS: Nicotine Patch Removal NOTE FOLLOW UP SCH (19:57)
--- NOTE | 2019-05-15 20:26 | PN ---
Subjective Date of Service: 05/15/19 Interval History: seen pleasant no events. pleasant confused and disoriented Past Medical History: Unchanged from Admission Objective Active Medications: Acetaminophen (Tylenol Adult Liq*) 650 mg PO Q4H PRN PRN Reason: MILD PAIN or TEMP > 100.4 Last Admin: 05/02/19 19:52 Dose: 650 mg Bisacodyl (Dulcolax Supp*) 10 mg [place] DAILY PRN PRN Reason: CONSTIPATION Docusate Sodium (Colace Cap*) 100 mg PO BID [facility] Last Admin: 05/15/19 19:56 Dose: 100 mg Enoxaparin Sodium (Lovenox(*)) 40 mg SUBCUT Q24H [facility] Last Admin: 05/14/19 21:19 Dose: 40 mg Famotidine (Pepcid Susp 8mg/Ml) 20 mg PO DAILY [facility] Last Admin: 05/15/19 09:31 Dose: 20 mg Levetiracetam (Keppra Tab*) 750 mg PO BID [facility] Last Admin: 05/15/19 19:56 Dose: 750 mg Magnesium Hydroxide (Milk Of Magnesia Liq*) 30 ml PO Q4H PRN PRN Reason: CONSTIPATION Last Admin: 05/03/19 20:15 Dose: 30 ml Melatonin (Melatonin) 3 mg PO BEDTIME PRN PRN Reason: INSOMNIA Last Admin: 05/14/19 21:19 Dose: 3 mg Miscellaneous (Ativan Pyxis Bray) 1 ea N/A .ATIVAN IV BRAY PRN PRN Reason: PYXIS BRAY Nicotine (Nicotine Patch 21 Mg/24 Hr*) 1 patch TRANSDERM DAILY [facility] Last Admin: 05/15/19 09:27 Dose: Not Given Pharmacy Profile Note (Nicotine Patch Removal Note*) 1 note FOLLOW UP 2099 [facility] Last Admin: 05/15/19 19:57 Dose: Not Given Polyethylene Glycol/Electrolytes (Miralax (17 Gm Dose Justino)) 17 gm PO 0800,2099 [facility] Last Admin: 05/15/19 19:51 Dose: Not Given Vital Signs - 8 hr 05/15/19 05/15/19 19:05 19:09 Temperature 97.4 F Pulse Rate 68 Respiratory 18 17 Rate Blood Pressure 110/69 (mmHg) O2 Sat by Pulse 98 Oximetry Oxygen Devices in Use Now: None Eyes: No Scleral Icterus, PERRLA Ears/Nose/Mouth/Throat: NL Teeth, Lips, Gums, Clear Oropharnyx Neck: NL Appearance and Movements; NL JVP, Trachea Midline Respiratory: Symmetrical Chest Expansion and Respiratory Effort, Clear to Auscultation Cardiovascular: NL Sounds; No Murmurs; No JVD, No Edema Abdominal: NL Sounds; No Tenderness; No Distention Result Diagrams: 05/12/19 05:55 05/12/19 05:55 Microbiology and Other Data: Microbiology 04/26/19 20:25 CSF Gram Stain (Tube 3) - Preliminary Cerebral Spinal Fluid 04/26/19 19:15 Nasal Screen MRSA (PCR) - Final Nasal Mrsa Not Detected Diagnostic Imaging: CT brain--No acute intra-cranial pathology; CXR-wnl EKG Data: NSR Assess/Plan/Problems-Billing Assessment: Mr Regalado is a 58 yo M with PMH of cognitive impairment, recent diagnosis of probable Parkinson's disease, tobacco abuse presented after a seizure with cough , AMS, and was found to have H. influenza pneumonia. - Patient Problems (1) Encephalopathy Current Visit: Yes Status: Acute Code(s): G93.40 - ENCEPHALOPATHY, UNSPECIFIED SNOMED Code(s): 68624090 Comment: - Multifactorial in the setting of chronic cognitive impairment of unclear etiology, worsened by pneumonia and new onset seizure diagnosed on EEG . - Intubated on admission due to severe agitation requiring significant sedation. - MRI brain did not show acute pathology. - CSF was negative for meningitis - Psych consult appreciated - patient lacks capacity to refuse placement. 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 - [facility] (2) Haemophilus influenzae pneumonia Current Visit: Yes Status: Acute Comment: - CT chest showed atelectasis and sputum grew H. influenza. - CRP improved from 136 to 55 - urine negative for S. pneumo, Legionella - Completed Ceftriaxone. (3) Hypokalemia Current Visit: Yes Status: Resolved Code(s): E87.6 - HYPOKALEMIA SNOMED Code(s): 94416027 Comment: - resolved (4) Nicotine dependence Current Visit: Yes Status: Acute Code(s): F17.200 - NICOTINE DEPENDENCE, UNSPECIFIED, UNCOMPLICATED SNOMED Code(s): 61220375 Comment: - On nicotine replacement therapy (5) Parkinsons disease Current Visit: Yes Status: Acute Code(s): G20 - PARKINSON'S DISEASE SNOMED Code(s): 55813450 Comment: - Seen by Dr. Qiu as outpatient. - With possible Parkinson's dementia - referred to [facility] Movement disorder. - Had been recentily started on Carbidopa-Levodopa as outpatient, discontinued on admission due to AMS. (6) Seizure Current Visit: Yes Status: Acute Code(s): R56.9 - UNSPECIFIED CONVULSIONS SNOMED Code(s): 75524089 Comment: - EEG 05/02/19 did reveal epileptic acitivy in his left temporal region. - Continue Keppra 750 mg BID. (7) Acute respiratory failure Current Visit: Yes Status: Resolved Code(s): J96.00 - ACUTE RESPIRATORY FAILURE, UNSP W HYPOXIA OR HYPERCAPNIA SNOMED Code(s): 58739087 Comment: - s/p mechanical intubation from 03/26 - 04/29 (8) DVT prophylaxis Current Visit: Yes Status: Acute Code(s): Z29.9 - ENCOUNTER FOR PROPHYLACTIC MEASURES, UNSPECIFIED SNOMED Code(s): 240855417 Comment: - Lovenox. will d/c he is ambulating Status and Disposition: Inpatient. [facility]anged to [facility] - [facility] plan [facility].
[2019-05-15] MEDS: Enoxaparin(*) 40 MG/0.4 ML SYR SUBCUT SCH (20:48)
[2019-05-16] MEDS: Polyethylene Glycol 3350* 17 GM PACKET PO SCH ×2 (08:47→22:33)
[2019-05-16] MEDS: Docusate CAP* 100 MG PO SCH ×2 (08:49→20:07)
[2019-05-16] MEDS: levETIRAcetam TAB* 500 MG PO SCH ×2 (08:49→20:07)
[2019-05-16] MEDS: Famotidine SUSP ORALSYR 8 MG/ML PO SCH (08:49)
[2019-05-16] MEDS: Nicotine PATCH 21 MG/24 HR* PATCH TRANSDERM SCH (12:49)
[2019-05-16] MEDS: Melatonin 3 MG TAB PO PRN (20:07)
[2019-05-16] MEDS: Nicotine Patch Removal NOTE FOLLOW UP SCH (22:33)
[2019-05-16] MEDS: Enoxaparin(*) 40 MG/0.4 ML SYR SUBCUT SCH (22:43)
[2019-05-17] MEDS: levETIRAcetam TAB* 500 MG PO SCH ×2 (10:06→20:44)
[2019-05-17] MEDS: Docusate CAP* 100 MG PO SCH ×2 (10:06→20:44)
[2019-05-17] MEDS: Polyethylene Glycol 3350* 17 GM PACKET PO SCH ×2 (10:07→20:40)
[2019-05-17] MEDS: Nicotine PATCH 21 MG/24 HR* PATCH TRANSDERM SCH (10:07)
[2019-05-17] MEDS: Famotidine SUSP ORALSYR 8 MG/ML PO SCH (10:07)
[2019-05-17] MEDS: Nicotine Patch Removal NOTE FOLLOW UP SCH (20:39)
[2019-05-17] MEDS: Melatonin 3 MG TAB PO PRN (20:44)
[2019-05-18] MEDS: Famotidine TAB* 20 MG PO SCH (09:15)
[2019-05-18] MEDS: Docusate CAP* 100 MG PO SCH ×2 (09:15→20:58)
[2019-05-18] MEDS: levETIRAcetam TAB* 500 MG PO SCH ×2 (09:15→20:58)
[2019-05-18] MEDS: Polyethylene Glycol 3350* 17 GM PACKET PO SCH ×2 (09:17→20:58)
[2019-05-18] MEDS: Nicotine PATCH 21 MG/24 HR* PATCH TRANSDERM SCH (09:17)
[2019-05-18] MEDS: Nicotine Patch Removal NOTE FOLLOW UP SCH (20:44)
[2019-05-19] MEDS: Nicotine PATCH 21 MG/24 HR* PATCH TRANSDERM SCH (07:41)
[2019-05-19] MEDS: Polyethylene Glycol 3350* 17 GM PACKET PO SCH ×2 (07:41→20:07)
[2019-05-19] MEDS: Docusate CAP* 100 MG PO SCH ×2 (08:08→20:10)
[2019-05-19] MEDS: Famotidine TAB* 20 MG PO SCH (08:08)
[2019-05-19] MEDS: levETIRAcetam TAB* 500 MG PO SCH ×2 (08:08→20:10)
[2019-05-19] MEDS: Nicotine Patch Removal NOTE FOLLOW UP SCH (19:55)
[2019-05-19] MEDS: Melatonin 3 MG TAB PO PRN (20:10)
[2019-05-20 07:41] VITALS: BP 112/73
[2019-05-20] MEDS: Nicotine PATCH 21 MG/24 HR* PATCH TRANSDERM SCH (09:48)
[2019-05-20] MEDS: Polyethylene Glycol 3350* 17 GM PACKET PO SCH (09:56)
[2019-05-20] MEDS: Docusate CAP* 100 MG PO SCH (09:58)
[2019-05-20] MEDS: Famotidine TAB* 20 MG PO SCH (09:58)
[2019-05-20] MEDS: levETIRAcetam TAB* 500 MG PO SCH (09:58)
--- NOTE | 2019-05-20 16:07 | DS ---
DISCHARGE SUMMARY: DATE OF ADMISSION: 04/26/19 DATE OF DISCHARGE: 05/20/19 FINAL DISCHARGE DIAGNOSES: 1. Encephalopathy secondary to chronic cognitive dysfunction, exacerbated by new onset seizures. 2. New onset seizure disorder. 3. Haemophilus influenzae pneumonia. 4. Parkinson disease, by history. 5. Status post acute respiratory failure. 6. Status post mechanical intubation. 7. Sinus bradycardia. 8. Nicotine dependency. HOSPITAL COURSE: The patient presented to [facility] on 04/26/19 with altered mental status and seizure-like activity and lethargy with previous known history/diagnosis of Parkinson disease, was brought into the ER by his significant other at bedside during the initial admission based on the admitting medical provider. His significant other at that time noticed seizure- like activity, shaking with eyes rolling backward. It lasted about 3 to 5 minutes. There was some urine incontinence. He does have a known history of Parkinson's for which he follows with outpatient Dr. Qiu, his neurologist. On admission, he was very combative, lethargic. He was heavily sedated, and given his lactic acidosis and leukocytosis, he was admitted to the supervisor mold construction service , intubated, and started on empiric treatment for meningitis. The patient remained in the ICU service mechanically intubated under the supervisor mold construction service , at which time he received broad-spectrum antibiotics and neurology consultation was obtained. The patient was transferred to the medical floor on 05/02/19, and he was seen and evaluated by me initial encounter on 05/06/19. During my evaluation, the patient at that time he was downgraded to medical floor and his sepsis on admission was related to Haemophilus pneumonia based on positive sputum culture. He completed intravenous antibiotic, ceftriaxone, and his seizures have been controlled on his Keppra 750 b.i.d. However, his mentation continued to be poor and cognitive function was poor. Therefore, I did request psych evaluation for mental capacity for which he did not pass the capacity criteria and he was deemed to be without capacity to make a competent medical decision and his healthcare proxy, which is his sister, was more involved in his medical decision care afterward. He remained in the hospital and he was transitioned to assisted care awaiting placement, and today on 05/19, he was deemed stable for discharge to [facility] in a stable condition. DISCHARGE PLAN: For his sepsis we ruled in was related to his Haemophilus influenzae pneumonia. Status post ceftriaxone 14 days. For his encephalopathy, which is due to underlying chronic cognitive dysfunction exacerbated by the seizures, currently, he is medically deemed not capable of making a medical decision due to lack of capacity. His CSF is negative for meningitis. MRI brain did not show any acute pathology. For his seizure disorder, EEG did confirm the presence of seizure in the left temporal lobe which was done on 05/02/19. We will continue Keppra 750 b.i.d. For his acute respiratory failure, it was due to his seizure, lactic acidosis, and hyperammonia, he was extubated on 04/29/19, has been stable since. For his Parkinson disease, he was taken of his outpatient carbidopa/levodopa on admission, has not reinstated after extubation, and I decided to keep it off since the patient has shown any worsening of parkinsonism and we will defer that to his primary neurologist, Dr. Qiu, on an outpatient basis. Therefore, his Sinemet has remained on hold. For his nicotine replacement therapy, it was maintained. Electrolytes were balanced. PHYSICAL EXAMINATION: On discharge, temperature 98.2, pulse 54, respiratory rate 23, sating 97%, blood pressure 127/73. Generally, he is awake, he is alert , but he is confused, disoriented to time, but he is oriented to self, person, and place. Head and neck: Normocephalic, atraumatic. Supple. Anicteric sclerae. Extraocular muscle intact. Lungs: Good air flow bilaterally. No crackles, rhonchi, rales, or wheeze. Cardiovascular: S1, S2, bradycardic but regular. Abdomen: Positive bowel sounds, soft, nontender and nondistended. Extremities: No pedal edema. DIAGNOSTIC STUDIES/LAB DATA: He has had multiple CBC throughout the hospital stay. His admission CBC was significant for white count 22,000, down to 9.3 on his last CBC before discharge. Chemistry: Most significant from admission was lactic acidosis. It was 13.7 on admission, down to 0.6 within 24 hours. Creatinine was as high as 1.2, down to 0.8. Some electrolyte disturbance manifested with hyperkalemia and hypomagnesemia, both were corrected and supplemented accordingly. Mild B12 deficiency which has been supplemented orally. CT scan of the brain on admission, 04/26/19, shows no intracranial abnormality. This was repeated on 04/27/19, 24 hours later, it did not show any acute intracranial pathology. MRI of the brain on 04/30/19 did not show any focal to explain his seizure activity, some mild chronic vessel disease. Chest x-ray did not show any acute cardiopulmonary disease. This was followed by the CT chest without contrast with some bibasilar atelectatic changes, atelectasis, otherwise unremarkable. EEG twice, last one on 05/02/19, shows epileptiform discharge in the left anterior temporal region compatible with focal onset epilepsy. CONSULTATION: ICU supervisor mold construction and Neurology with Dr. Fuentes. DISCHARGE MEDICATIONS: 1. Keppra 750 mg twice a day. 2. Tylenol as needed. 3. Dulcolax suppository p.r.n. 4. Colace 100 b.i.d., hold for diarrhea. 5. Pepcid 20 mg daily. 6. Milk of magnesia. 7. Melatonin 3 mg at bedtime. 8. Nicotine patch for his tobacco dependency replacement therapy. 9. MiraLAX 17 g as needed once a day. DISCHARGE INSTRUCTIONS: 1. Follow up with Dr. Jace Qiu, his outpatient neurologist, to schedule appointment please within 1 to 2 weeks from his discharge. 2. Follow up with the primary care in [facility] in 1 to 2 weeks; an appointment with Savita Colby NP, in 1 to 2 weeks was placed on his outpatient referral. DISCHARGE RECOMMENDATION: Take all medications as prescribed. Adhere and follow up with the appointments as scheduled. DISCHARGE CONDITION: Stable. DISCHARGE DISPOSITION: [facility]. [id number]/[facility] #: [id number] [facility]
== END 2019-05-20 14:35 | DRG 720 ==
LOC: EDUNIT# → ED 18:03 → ICU 21:05 → MED 04-30 08:01
PROVIDERS: ADMIT Family Medicine; ATTEND Internal Medicine
PROC: 5A1945Z Respiratory Ventilation, 24-96 Consecutive Hours (ICD-10-PCS; principal; 2019-04-26)
PROC: 0BH17EZ Insertion of Endotracheal Airway into Trachea, Via Natural or Artificial Opening (ICD-10-PCS; 2019-04-26)
PROC: 009U3ZX Drainage of Spinal Canal, Percutaneous Approach, Diagnostic (ICD-10-PCS; 2019-04-26)
PROC: 4A00X4Z Measurement of Central Nervous Electrical Activity, External Approach (ICD-10-PCS; 2019-05-02)
DX: A41.3 Sepsis due to Hemophilus influenzae (principal); J14 Pneumonia due to Hemophilus influenzae; J96.00 Acute respiratory failure, unspecified whether with hypoxia or hypercapnia; R40.2212 Coma scale, best verbal response, none, at arrival to emergency department; E87.2 Acidosis; G20 Parkinson's disease; F17.210 Nicotine dependence, cigarettes, uncomplicated; R40.2352 Coma scale, best motor response, localizes pain, at arrival to emergency department; R40.2142 Coma scale, eyes open, spontaneous, at arrival to emergency department; G40.909 Epilepsy, unspecified, not intractable, without status epilepticus; F02.80 Dementia in other diseases classified elsewhere, unspecified severity, without behavioral disturbance, psychotic disturbance, mood disturbance, and anxiety; E87.6 Hypokalemia; R00.1 Bradycardia, unspecified; Z79.899 Other long term (current) drug therapy; Z88.0 Allergy status to penicillin
CPT/HCPCS: 36415; 70450; 70553; 71045; 71250; 74018; 80048; 80053; 80177; 80307; 80320; 81003; 81015; 82140; 82550; 82945; 83605; 83735; 84157; 84443; 84484; 85025; 85027; 85610; 86140; 87040; 87070; 87077; 87086; 87185; 87205; 87641; 89051; 93005; 94002; 94003; 95816; 95822; 96374; 96375; 99285; A9270-GY; A9579; G0480; J0330; J0692; J0696; J1200; J1630; J1650; J1953; J2060; J2250; J2704; J3010; J3480